=== PATIENT | male | born 1955 | race Caucasian/White ===

== ENCOUNTER → 2019-07-17 11:14 | Outpatient (CLI) | payer OTHER, SELFPAY ==
[2019-07-17 11:45] LABS: Basophils % 0.5 % (0.1-2.0); Eosinophils # 0.2 K/mm3 (0.0-0.4); Eosinophils % 2.6 % (0.1-12.0); Hematocrit 47.8 % (42.0-52.0); Hemoglobin 15.6 g/dL (14.1-18.0); Lymphocytes # 1.9 K/mm3 (0.7-4.5); Lymphocytes % 24.7 % (10-50); Mean Corpuscular HGB Conc 32.6 g/dL (31.8-35.4); Mean Corpuscular Hemoglobin 29.9 pg (27.0-31.2); Mean Corpuscular Volume 91.7 fl (80-94); Mean Platelet Volume 7.1 fl (7.4-10.4); Monocytes # 0.4 K/mm3 (0.1-1.0); Monocytes % 4.5 % (1.7-9.3); Neutrophils # 5.3 K/mm3 (1.8-7.8); Neutrophils % 67.6 % (37.0-80.0); Platelet Count 267 K/mm3 (142-424); Red Blood Count 5.21 M/mm3 (4.60-6.20); Red Cell Distribution Width 13.3 % (11.5-17.5); White Blood Count 7.9 K/mm3 (4.8-10.8)
[2019-07-17 14:18] LABS: Alanine Aminotransferase 25 U/L (12-78); Albumin Level 3.8 gm/dL (3.4-5.0); Albumin/Globulin Ratio 1.2 (1.1-1.8); Alkaline Phosphatase 98 U/L (46-116); Anion Gap 10.3 mEq/L (5-15); Aspartate Amino Transferase 13 U/L (15-37); Bilirubin,Total 0.9 mg/dL (0.2-1.0); Blood Urea Nitrogen 17 mg/dL (7-18); Calcium 8.8 mg/dL (8.5-10.1); Carbon Dioxide 30 mmol/L (21.0-32.0); Chloride 106 mmol/L (98-107); Creatinine,Serum 0.91 mg/dL (0.70-1.30); Estimated Glomerular Filt Rate 85 ml/min (>60); GFR (African American) 102 ML/MIN (>60); Globulin 3.2 gm/dl (1.3-3.2); Glucose 91 mg/dL (74-106); Potassium 4.3 mmoL/L (3.5-5.1); Sodium 142 mmol/L (136-145)
[2019-07-18 12:59] LABS: PSA, Free 17.81 ng/mL; Prostate Specific Ag 119.7 ng/mL (0.0-4.0)
== END ==
PROVIDERS: Visit Provider Internal Medicine Adolescent Medicine
DX: R97.20 Elevated prostate specific antigen [PSA] (principal)
CPT/HCPCS: 36415; 80053; 84153; 84154; 85025

== ENCOUNTER → 2019-08-29 09:06 | Outpatient (CLI) | payer OTHER, SELFPAY ==
--- NOTE | 2019-08-29 09:10 | NM_ITS ---
PROCEDURE: NM BONE SCAN WHOLE BODY CLINICAL INDICATION: ELEVATED PSA,FIRM PROSTATE COMPARISON: No exams were available for comparison TECHNIQUE: Dose: 25.2 mCi technetium MDP FINDINGS: Nonspecific increased periarticular activity noted in the shoulders hips knees and ankles. There is a small focus of increased activity in the left costovertebral region which could be degenerative. Plain films may confirm. There is some bowing of the femurs on both sides which is nonspecific. No other significant anomalies are evident. IMPRESSION: 1. Overall, no convincing evidence of metastatic disease. 2. Small area of increased activity in the left costovertebral region at T10 which could be due to an area bony spurring. Plain film may confirm. Dictated by: Tony Smith MD 08/30/2019 11:05 Electronically signed by Tony Smith MD in [place] 08/30/2019 11:05
== END ==
PROVIDERS: PCP Internal Medicine Adolescent Medicine; Visit Provider Urology
DX: R97.20 Elevated prostate specific antigen [PSA] (principal); R39.89 Other symptoms and signs involving the genitourinary system
CPT/HCPCS: 78306; A9503

== ENCOUNTER → 2019-09-01 09:32 | Outpatient (CLI) | payer OTHER, SELFPAY ==
[2019-09-01 10:03] LABS: Blood Urea Nitrogen 16 mg/dL (7-18); Creatinine,Serum 1.02 mg/dL (0.70-1.30); Estimated Glomerular Filt Rate 74 ml/min (>60); GFR (African American) 90 ML/MIN (>60)
--- NOTE | 2019-09-01 10:11 | CT_ITS ---
PROCEDURE: CT CHEST WO/W CON CLINCAL INDICATION: HARD PROSTATE,ELEVATED PSA Metastatic disease COMPARISON: CT ABDOMEN PELVIS WO/W CON from 09/01/2019 TECHNIQUE: IV Contrast: 75ml Optiray 350 Axial images obtained with sagittal and coronal reformats. All CT scans at the facility use one or more dose reduction, viz: automated exposure control, ma/kV adjustment per patient size (including targeted exams where dose is matched to indication, i.e. head), or iterative reconstruction technique. FINDINGS: Normal heart size. No pericardial effusion. There are some coronary artery calcifications noted. No hilar adenopathy. There is an enlarged lymph node posterior to the mid aspect of the esophagus at the aorta esophageal region. This measures approximately 2.3 x 2 cm. A small lymph node is present in the aortopulmonic region at 12 x 8 mm. There are a few scattered small noncalcified pulmonary nodules including a 3 mm subpleural nodule in the right upper lobe image 41, subpleural nodule right lower lobe laterally image 50 at 3 mm, 3 mm subpleural nodule left lower lobe posteriorly image 63, 3 mm subpleural nodule left lower lobe laterally image 54. These are nonspecific. No effusions or infiltrates. No bony destructive process. No blastic lesions. There is mild gynecomastia. IMPRESSION: 1. There is an enlarged posterior mediastinal lymph node between the esophagus and descending thoracic aorta. 2. There are scattered small subpleural opacities which are nonspecific. 3. Otherwise negative Dictated by: Tony Smith MD 09/01/2019 17:16 Electronically signed by Tony Smith MD in [facility] 09/02/2019 08:46
--- NOTE | 2019-09-01 10:11 | CT_ITS ---
PROCEDURE: CT ABDOMEN PELVIS WO/W CON CLINICAL INDICATION: HARD PROSTATE,ELEVATED PSA Elevated PSA COMPARISON: No exams were available for comparison TECHNIQUE: IV Contrast: 75ML OPTIRAY 350 Oral Contrast none Axial images obtained with sagittal and coronal reformats. All CT scans at the facility use one or more dose reduction, viz: automated exposure control, ma/kV adjustment per patient size (including targeted exams where dose is matched to indication, i.e. head), or iterative reconstruction technique. FINDINGS: Liver, spleen, adrenal glands, pancreas, and kidneys have an unremarkable appearance. No intestinal obstruction or free air. Unremarkable appendix. Enlarged lymph nodes are present in the retroperitoneum in the left para-aortic area just inferior to the left renal artery. This node measures 3.7 by 3.2 cm. There is an additional 2.4 cm node inferior to this larger node. Enlarged nodes are present in the left upper pelvic region in the retroperitoneum in the internal iliac area measuring up to 2.8 x 3.8 cm. And enlarged external iliac node on the left is also present at 2.9 cm. The prostate is enlarged measuring 6.4 cm AP, 4.9 cm transverse the, and 6 cm cephalad caudad. Irregular low-density changes are present in the inferior and posterior aspect of the prostate suspicious for neoplasm. No abnormal fluid collections. No acute bony findings. No obvious blastic or lytic lesions evident. Small umbilical hernia containing fat noted IMPRESSION: 1. Enlarged prostate with irregular low-density changes posteriorly and inferiorly suspicious for neoplasm with multiple enlarged retroperitoneal lymph nodes consistent with metastatic disease. 2. No evidence of hepatic or adrenal metastasis. Dictated by: Tony Smith MD 09/01/2019 17:17 Electronically signed by Tony Smith MD in [place] 09/02/2019 08:35
== END ==
PROVIDERS: Visit Provider Urology
DX: R97.20 Elevated prostate specific antigen [PSA] (principal); R39.89 Other symptoms and signs involving the genitourinary system
CPT/HCPCS: 36415; 71270; 74178; 82565; 84520; Q9967

== ENCOUNTER → 2019-11-23 11:42 | Outpatient (CLI) | payer OTHER, SELFPAY ==
[2019-11-23 11:55] LABS: Basophils % 0.3 % (0.1-2.0); Eosinophils # 0.2 K/mm3 (0.0-0.4); Eosinophils % 2.4 % (0.1-12.0); Hematocrit 45.1 % (42.0-52.0); Hemoglobin 15.1 g/dL (14.1-18.0); Lymphocytes # 1.6 K/mm3 (0.7-4.5); Lymphocytes % 22.5 % (10-50); Mean Corpuscular HGB Conc 33.4 g/dL (31.8-35.4); Mean Corpuscular Hemoglobin 29.7 pg (27.0-31.2); Mean Corpuscular Volume 88.7 fl (80-94); Mean Platelet Volume 7.1 fl (7.4-10.4); Monocytes # 0.4 K/mm3 (0.1-1.0); Monocytes % 5.6 % (1.7-9.3); Neutrophils % 69.2 % (37.0-80.0); Platelet Count 251 K/mm3 (142-424); Red Blood Count 5.08 M/mm3 (4.60-6.20); Red Cell Distribution Width 13.4 % (11.5-17.5); White Blood Count 7.2 K/mm3 (4.8-10.8)
[2019-11-23 13:48] LABS: Alanine Aminotransferase 22 U/L (12-78); Albumin Level 3.9 g/dl (3.5-5.0); Albumin/Globulin Ratio 1.4 (1.1-1.8); Alkaline Phosphatase 77 U/L (38-126); Anion Gap 10.7 mEq/L (5-15); Aspartate Amino Transferase 27 U/L (17-59); Bilirubin,Total 0.3 mg/dl (0.2-1.3); Blood Urea Nitrogen 17 mg/dl (9-20); Calcium 8.8 mg/dl (8.4-10.2); Carbon Dioxide 30 mmol/L (22.0-30.0); Chloride 106 mmol/L (98-107); Estimated Glomerular Filt Rate 76 ml/min (>60); GFR (African American) 92 ML/MIN (>60); Globulin 2.7 g/dL (1.3-3.2); Glucose 87 mg/dl (74-100); Potassium 4.7 mmoL/L (3.5-5.1); Sodium 142 mmol/L (136-145); Total Protein,Serum 6.6 g/dl (6.3-8.2)
[2019-11-23 14:20] LABS: Prostate Specific Ag, Diagnost 41.7 ng/ml (0.0-4.0)
== END ==
PROVIDERS: Visit Provider Internal Medicine Medical Oncology
DX: C61 Malignant neoplasm of prostate (principal)
CPT/HCPCS: 36415; 80053; 84153; 85025

== ENCOUNTER → 2020-01-03 11:19 | Outpatient (CLI) | payer OTHER, SELFPAY ==
[2020-01-03 11:43] LABS: Basophils % 0.4 % (0.1-2.0); Eosinophils # 0.4 K/mm3 (0.0-0.4); Eosinophils % 4.3 % (0.1-12.0); Hematocrit 42.8 % (42.0-52.0); Hemoglobin 14.2 g/dL (14.1-18.0); Lymphocytes # 1.5 K/mm3 (0.7-4.5); Lymphocytes % 14.5 % (10-50); Mean Corpuscular HGB Conc 33.2 g/dL (31.8-35.4); Mean Corpuscular Volume 90.1 fl (80-94); Mean Platelet Volume 6.8 fl (7.4-10.4); Monocytes # 0.5 K/mm3 (0.1-1.0); Neutrophils # 7.6 K/mm3 (1.8-7.8); Neutrophils % 75.7 % (37.0-80.0); Platelet Count 248 K/mm3 (142-424); Red Blood Count 4.74 M/mm3 (4.60-6.20); White Blood Count 10.1 K/mm3 (4.8-10.8)
[2020-01-03 13:28] LABS: Alanine Aminotransferase 34 U/L (12-78); Albumin Level 3.8 g/dl (3.5-5.0); Albumin/Globulin Ratio 1.4 (1.1-1.8); Alkaline Phosphatase 82 U/L (38-126); Anion Gap 10.4 mEq/L (5-15); Aspartate Amino Transferase 28 U/L (17-59); Bilirubin,Total 0.5 mg/dl (0.2-1.3); Blood Urea Nitrogen 21 mg/dl (9-20); Calcium 9.7 mg/dl (8.4-10.2); Carbon Dioxide 32 mmol/L (22.0-30.0); Chloride 101 mmol/L (98-107); Estimated Glomerular Filt Rate 86 ml/min (>60); GFR (African American) 103 ML/MIN (>60); Globulin 2.7 g/dL (1.3-3.2); Glucose 118 mg/dl (74-100); Potassium 4.4 mmoL/L (3.5-5.1); Sodium 139 mmol/L (136-145); Total Protein,Serum 6.5 g/dl (6.3-8.2)
[2020-01-03 13:58] LABS: Prostate Specific Ag Screen 1.4 ng/ml (0.0-4.0)
== END ==
PROVIDERS: Visit Provider Internal Medicine Medical Oncology
DX: C61 Malignant neoplasm of prostate (principal)
CPT/HCPCS: 36415; 80053; 85025; G0103

== ENCOUNTER → 2020-02-05 12:52 | Outpatient (CLI) | payer OTHER, SELFPAY ==
[2020-02-05 14:45] LABS: Chloride 102 mmol/L (98-107); Potassium 4.7 mmoL/L (3.5-5.1); Sodium 137 mmol/L (136-145)
[2020-02-05 14:48] LABS: Anion Gap 8.7 mEq/L (5-15); Blood Urea Nitrogen 24 mg/dl (9-20); Calcium 9.5 mg/dl (8.4-10.2); Carbon Dioxide 31 mmol/L (22.0-30.0); Estimated Glomerular Filt Rate 68 ml/min (>60); GFR (African American) 82 ML/MIN (>60); Glucose 105 mg/dl (74-100)
== END ==
PROVIDERS: Visit Provider Internal Medicine Adolescent Medicine
DX: I10 Essential (primary) hypertension (principal)
CPT/HCPCS: 36415; 80048

== ENCOUNTER → 2020-02-07 11:28 | Outpatient (CLI) | payer OTHER, SELFPAY ==
[2020-02-07 11:49] LABS: Basophils # 0.1 K/mm3 (0-0.2); Basophils % 1.1 % (0.1-2.0); Eosinophils # 0.1 K/mm3 (0.0-0.4); Eosinophils % 1.1 % (0.1-12.0); Hematocrit 44.9 % (42.0-52.0); Hemoglobin 14.5 g/dL (14.1-18.0); Lymphocytes # 3.2 K/mm3 (0.7-4.5); Lymphocytes % 30.9 % (10-50); Mean Corpuscular HGB Conc 32.3 g/dL (31.8-35.4); Mean Corpuscular Hemoglobin 29.9 pg (27.0-31.2); Mean Corpuscular Volume 92.5 fl (80-94); Mean Platelet Volume 6.9 fl (7.4-10.4); Monocytes # 0.3 K/mm3 (0.1-1.0); Monocytes % 3.3 % (1.7-9.3); Neutrophils # 6.6 K/mm3 (1.8-7.8); Neutrophils % 63.5 % (37.0-80.0); Platelet Count 312 K/mm3 (142-424); Red Blood Count 4.86 M/mm3 (4.60-6.20); Red Cell Distribution Width 13.7 % (11.5-17.5); White Blood Count 10.4 K/mm3 (4.8-10.8)
[2020-02-07 13:12] LABS: Alanine Aminotransferase 101 U/L (12-78); Albumin Level 3.9 g/dl (3.5-5.0); Albumin/Globulin Ratio 1.3 (1.1-1.8); Alkaline Phosphatase 82 U/L (38-126); Aspartate Amino Transferase 52 U/L (17-59); Bilirubin,Total 0.7 mg/dl (0.2-1.3); Blood Urea Nitrogen 23 mg/dl (9-20); Calcium 9.8 mg/dl (8.4-10.2); Carbon Dioxide 31 mmol/L (22.0-30.0); Chloride 100 mmol/L (98-107); Estimated Glomerular Filt Rate 76 ml/min (>60); GFR (African American) 92 ML/MIN (>60); Globulin 2.9 g/dL (1.3-3.2); Glucose 143 mg/dl (74-100); Sodium 135 mmol/L (136-145); Total Protein,Serum 6.8 g/dl (6.3-8.2)
[2020-02-07 13:41] LABS: Prostate Specific Ag, Diagnost 0.538 ng/ml (0.0-4.0)
== END ==
PROVIDERS: Visit Provider Internal Medicine Medical Oncology
DX: C61 Malignant neoplasm of prostate (principal)
CPT/HCPCS: 36415; 80053; 84153; 85025

== ENCOUNTER → 2020-02-20 18:06 | Outpatient (CLI) | payer OTHER, SELFPAY ==
[2020-02-20 19:12] LABS: Blood Urea Nitrogen 25 mg/dl (9-20); Estimated Glomerular Filt Rate 68 ml/min (>60); GFR (African American) 82 ML/MIN (>60)
== END ==
PROVIDERS: Visit Provider Internal Medicine Medical Oncology
DX: C61 Malignant neoplasm of prostate (principal)
CPT/HCPCS: 36415; 82565; 84520

== ENCOUNTER → 2020-02-21 09:43 | Outpatient (CLI) | payer OTHER, SELFPAY ==
--- NOTE | 2020-02-21 09:48 | CT_ITS ---
PROCEDURE: CT CHEST W CON CLINCAL INDICATION: PROSTATE CA Follow-up prostate cancer COMPARISON: CT CHEST WO/W CON from 09/01/2019 CT ABDOMEN PELVIS W CON from 02/21/2020 TECHNIQUE: IV Contrast: 75ml Optiray 350 Axial images obtained with sagittal and coronal reformats. All CT scans at the facility use one or more dose reduction, viz: automated exposure control, ma/kV adjustment per patient size (including targeted exams where dose is matched to indication, i.e. head), or iterative reconstruction technique. FINDINGS: HEART AND MEDIASTINAL STRUCTURES: Previously noted enlarged posterior mediastinal lymph node is less prominent measuring 1.4 cm previously at 2.1 cm. No new areas of adenopathy are evident.. No mediastinal or hilar mass evident. LUNGS AND PLEURAL SPACES: Minimal atelectatic or fibrotic change in the right upper lobe medially. No lobar consolidation or collapse. No suspicious nodules BONY STRUCTURES: Degenerative changes thoracic spine UPPER ABDOMEN: Please see abdomen CT report IMPRESSION: Posterior mediastinal lymph node less prominent on today's exam. Otherwise negative Dictated by: Tony Smith MD 02/22/2020 13:01 Electronically signed by Tony Smith MD in [facility] 02/22/2020 13:01
--- NOTE | 2020-02-21 09:48 | CT_ITS ---
PROCEDURE: CT ABDOMEN PELVIS W CON CLINICAL INDICATION: PROSTATE CA Follow-up prostate cancer COMPARISON: CT ABDOMEN PELVIS WO/W CON from 09/01/2019 TECHNIQUE: IV Contrast: 75ML OPTIRAY 350 Oral Contrast 450ml Redicat Axial images obtained with sagittal and coronal reformats. All CT scans at the facility use one or more dose reduction, viz: automated exposure control, ma/kV adjustment per patient size (including targeted exams where dose is matched to indication, i.e. head), or iterative reconstruction technique. FINDINGS: LOWER THORAX: No acute finding. There is some mild coronary artery calcification noted ABDOMEN & PELVIS: The liver, spleen, gallbladder, adrenal glands, pancreas, and kidneys have an unremarkable appearance. No intestinal obstruction or free air. No evidence of appendicitis or diverticulitis. The There is persistent but improved retroperitoneal adenopathy. Left para-aortic lymph node a is noted and measures 16 x 18 mm previously 40 x 37 mm. And enlarged left common iliac lymph node measures 21 x 13 mm previously 37 by 26 mm. Left external iliac lymph node measures 21 x 15 mm previously 32 by 23 mm. There is a right perirectal node which measures 12 mm previously measured 21 mm. No new areas of adenopathy are evident. No bony destructive or lytic or blastic process evident IMPRESSION: 1. Persistent but overall improvement in the retroperitoneal and pelvic adenopathy as detailed above. 2. No evidence of hepatic or adrenal metastasis Dictated by: Tony Smith MD 02/22/2020 12:51 Electronically signed by Tony Smith MD in [place] 02/22/2020 12:51
== END ==
PROVIDERS: PCP Internal Medicine Adolescent Medicine; Visit Provider Internal Medicine Medical Oncology
DX: C61 Malignant neoplasm of prostate (principal)
CPT/HCPCS: 71260; 74177; Q9967

== ENCOUNTER → 2020-05-09 09:06 | Outpatient (CLI) | payer OTHER, SELFPAY ==
[2020-05-09 09:34] LABS: Basophils % 0.3 % (0.1-2.0); Eosinophils # 0.1 K/mm3 (0.0-0.4); Eosinophils % 1.1 % (0.1-12.0); Hematocrit 41.8 % (42.0-52.0); Hemoglobin 14.4 g/dL (14.1-18.0); Lymphocytes # 2.5 K/mm3 (0.7-4.5); Lymphocytes % 30.6 % (10-50); Mean Corpuscular HGB Conc 34.5 g/dL (31.8-35.4); Mean Corpuscular Hemoglobin 32.5 pg (27.0-31.2); Mean Corpuscular Volume 94.1 fl (80-94); Mean Platelet Volume 7.3 fl (7.4-10.4); Monocytes # 0.3 K/mm3 (0.1-1.0); Monocytes % 4.1 % (1.7-9.3); Neutrophils # 5.3 K/mm3 (1.8-7.8); Platelet Count 271 K/mm3 (142-424); Red Blood Count 4.44 M/mm3 (4.60-6.20); Red Cell Distribution Width 13.1 % (11.5-17.5); White Blood Count 8.3 K/mm3 (4.8-10.8)
[2020-05-09 10:39] LABS: Chloride 103 mmol/L (98-107); Potassium 3.6 mmoL/L (3.5-5.1); Sodium 138 mmol/L (136-145)
[2020-05-09 10:41] LABS: Blood Urea Nitrogen 14 mg/dl (9-20); Estimated Glomerular Filt Rate 86 ml/min (>60); GFR (African American) 103 ML/MIN (>60)
[2020-05-09 10:42] LABS: Alanine Aminotransferase 153 U/L (12-78); Albumin Level 3.5 g/dl (3.5-5.0); Albumin/Globulin Ratio 1.3 (1.1-1.8); Alkaline Phosphatase 70 U/L (38-126); Anion Gap 10.6 mEq/L (5-15); Aspartate Amino Transferase 74 U/L (17-59); Bilirubin,Total 0.9 mg/dl (0.2-1.3); Calcium 9.2 mg/dl (8.4-10.2); Carbon Dioxide 28 mmol/L (22.0-30.0); Globulin 2.6 g/dL (1.3-3.2); Glucose 125 mg/dl (74-100); Total Protein,Serum 6.1 g/dl (6.3-8.2)
[2020-05-09 11:44] LABS: Prostate Specific Ag, Diagnost 0.189 ng/ml (0.0-4.0)
== END ==
PROVIDERS: Visit Provider Internal Medicine Medical Oncology
DX: C61 Malignant neoplasm of prostate (principal)
CPT/HCPCS: 36415; 80053; 84153; 85025

== ENCOUNTER → 2020-07-09 17:32 | Outpatient (CLI) | payer OTHER, SELFPAY ==
[2020-07-09 19:30] LABS: Blood Urea Nitrogen 20 mg/dl (9-20); Estimated Glomerular Filt Rate 86 ml/min (>60); GFR (African American) 103 ML/MIN (>60)
== END ==
PROVIDERS: Visit Provider Internal Medicine Medical Oncology
DX: Z01.818 Encounter for other preprocedural examination (principal)
CPT/HCPCS: 36415; 82565; 84520

== ENCOUNTER → 2020-07-10 08:38 | Outpatient (CLI) | payer OTHER, SELFPAY ==
--- NOTE | 2020-07-10 08:56 | CT_ITS ---
PROCEDURE: CT ABDOMEN PELVIS W CON CLINICAL INDICATION: PROSTATE CX Follow-up prostate cancer COMPARISON: CT CT ABDOMEN PELVIS WO/W CON from 09/01/[address] ABDOMEN PELVIS W CON from 02/21/[address] CHEST W CON from 07/10/2020 TECHNIQUE: IV Contrast: 75ML OPTIRAY 350 Oral Contrast None Axial images obtained with sagittal and coronal reformats. All CT scans at the facility use one or more dose reduction, viz: automated exposure control, ma/kV adjustment per patient size (including targeted exams where dose is matched to indication, i.e. head), or iterative reconstruction technique. FINDINGS: There is a subtle 4 mm area of decreased attenuation in the left hepatic lobe inferiorly segment 3 nonspecific and probably unchanged dating back to 09/01/2019. Liver is otherwise unremarkable. The spleen, adrenal glands, pancreas, the and kidneys have an unremarkable appearance. No intestinal obstruction or free air is evident. No evidence of appendicitis. No abdominal or pelvic mass or adenopathy. There is a small umbilical hernia containing fat. A subcutaneous nodule is present in the right lower quadrant of the abdomen anteriorly at the level of the iliac crest nonspecific at 10 mm. The not readily apparent previously. There is a 9 mm subcutaneous nodule in the left lower abdominal wall anterior laterally not significantly changed.. There is a 1.7 by 1.2 cm lymph node medial to the left external iliac artery in the mid pelvic region. This is smaller previously measuring 2 by 1.3 cm. No new areas of adenopathy are evident. There is a 1.5 cm left periaortic lymph node slightly smaller previously 1.9 cm. There is a right perirectal lymph node barely visible also decreased since the previous exam. No abnormal fluid collections. The the no acute bony anomalies. IMPRESSION: Continued improvement in the retroperitoneal and pelvic adenopathy. No new areas of involvement evident. There is a subtle 4 mm area of decreased attenuation in the left hepatic lobe of the liver which is probably unchanged and may be benign. Dictated by: Tony Smith MD 07/11/2020 06:56 Tony Smith MD in [place] 07/11/2020 06:56
--- NOTE | 2020-07-10 08:56 | CT_ITS ---
PROCEDURE: CT CHEST W CON CLINCAL INDICATION: PROSTATE CX Follow-up prostate cancer COMPARISON: CT CT CHEST WO/W CON from 09/01/[address] CHEST W CON from 02/21/2020 TECHNIQUE: IV Contrast: 75ml Optiray 350 Axial images obtained with sagittal and coronal reformats. All CT scans at the facility use one or more dose reduction, viz: automated exposure control, ma/kV adjustment per patient size (including targeted exams where dose is matched to indication, i.e. head), or iterative reconstruction technique. FINDINGS: HEART AND MEDIASTINAL STRUCTURES: Small mediastinal lymph nodes are once again noted. A node posterior to the mid esophagus previously described is approximately 1.2 cm previously measuring 1.4 cm. Small subcarinal lymph nodes are unchanged. No new enlarged lymph nodes are evident. No mediastinal or hilar mass. Incidental note made of mild gynecomastia. There is mild ectasia ascending aorta at 4 cm unchanged. LUNGS AND PLEURAL SPACES: There is some scarring in the right upper lobe medially unchanged. There is a small nodule in the right upper lobe medially at 6 mm adjacent to the right aspect of the aortic root not readily apparent previously nonspecific too small to characterize. There are some scattered small subpleural opacities which are unchanged. BONY STRUCTURES: No acute bony abnormalities apparent. UPPER ABDOMEN: Please see abdomen report ADDITIONAL FINDINGS: No other significant abnormalities. IMPRESSION: There is a new 6 mm nodule in the right upper lobe adjacent to the ascending aorta. This is nonspecific and could be inflammatory or neoplastic. Continued follow-up suggested. Exam is otherwise stable with other stable small subpleural and parenchymal opacities. Posterior mediastinal lymph node stable to slightly smaller.. There is mild ectasia ascending aorta 4 cm unchanged. Dictated by: Tony Smith MD 07/11/2020 06:43 Tony Smith MD in [place] 07/11/2020 06:43
== END ==
PROVIDERS: PCP Internal Medicine Adolescent Medicine; Visit Provider Internal Medicine Medical Oncology
DX: C61 Malignant neoplasm of prostate (principal)
CPT/HCPCS: 71260; 74177; Q9967

== ENCOUNTER → 2020-10-30 15:57 | Outpatient (CLI) | payer OTHER, SELFPAY ==
[2020-10-30 16:53] LABS: Basophils % 0.4 % (0.1-2.0); Eosinophils # 0.2 K/mm3 (0.0-0.4); Eosinophils % 1.5 % (0.1-12.0); Hematocrit 42.9 % (42.0-52.0); Hemoglobin 13.9 g/dL (14.1-18.0); Lymphocytes # 2.8 K/mm3 (0.7-4.5); Lymphocytes % 26.9 % (10-50); Mean Corpuscular HGB Conc 32.5 g/dL (31.8-35.4); Mean Corpuscular Volume 92.4 fl (80-94); Mean Platelet Volume 6.7 fl (7.4-10.4); Monocytes # 0.6 K/mm3 (0.1-1.0); Neutrophils # 6.8 K/mm3 (1.8-7.8); Neutrophils % 65.2 % (37.0-80.0); Platelet Count 264 K/mm3 (142-424); Red Blood Count 4.65 M/mm3 (4.60-6.20); Red Cell Distribution Width 13.2 % (11.5-17.5); White Blood Count 10.4 K/mm3 (4.8-10.8)
[2020-10-30 20:46] LABS: Chloride 98 mmol/L (98-107); Potassium 4.3 mmoL/L (3.5-5.1); Sodium 136 mmol/L (136-145)
[2020-10-30 20:48] LABS: Blood Urea Nitrogen 21 mg/dl (9-20); Estimated Glomerular Filt Rate 85 ml/min (>60); GFR (African American) 103 ML/MIN (>60)
[2020-10-30 20:49] LABS: Alanine Aminotransferase 45 U/L (12-78); Albumin Level 4.1 g/dl (3.5-5.0); Albumin/Globulin Ratio 1.5 (1.1-1.8); Alkaline Phosphatase 80 U/L (38-126); Anion Gap 10.3 mEq/L (5-15); Aspartate Amino Transferase 38 U/L (17-59); Bilirubin,Total 0.6 mg/dl (0.2-1.3); Calcium 9.7 mg/dl (8.4-10.2); Carbon Dioxide 32 mmol/L (22.0-30.0); Globulin 2.8 g/dL (1.3-3.2); Glucose 74 mg/dl (74-100); Total Protein,Serum 6.9 g/dl (6.3-8.2)
[2020-10-30 22:03] LABS: Prostate Specific Ag, Diagnost < 0.064 ng/ml (0.0-4.0)
== END ==
PROVIDERS: Visit Provider Internal Medicine Medical Oncology
DX: C61 Malignant neoplasm of prostate (principal)
CPT/HCPCS: 36415; 80053; 84153; 85025

== ENCOUNTER → 2021-01-21 15:25 | Outpatient (CLI) | payer OTHER, SELFPAY ==
[2021-01-21 16:05] LABS: Basophils % 0.2 % (0.1-2.0); Eosinophils # 0.1 K/mm3 (0.0-0.4); Hematocrit 41.3 % (42.0-52.0); Hemoglobin 13.8 g/dL (14.1-18.0); Lymphocytes # 2.3 K/mm3 (0.7-4.5); Lymphocytes % 20.6 % (10-50); Mean Corpuscular HGB Conc 33.3 g/dL (31.8-35.4); Mean Corpuscular Hemoglobin 29.8 pg (27.0-31.2); Mean Corpuscular Volume 89.4 fl (80-94); Mean Platelet Volume 6.6 fl (7.4-10.4); Monocytes # 0.4 K/mm3 (0.1-1.0); Monocytes % 3.8 % (1.7-9.3); Neutrophils # 8.3 K/mm3 (1.8-7.8); Neutrophils % 74.4 % (37.0-80.0); Platelet Count 281 K/mm3 (142-424); Red Blood Count 4.62 M/mm3 (4.60-6.20); Red Cell Distribution Width 13.1 % (11.5-17.5); White Blood Count 11.2 K/mm3 (4.8-10.8)
[2021-01-21 16:35] LABS: Alanine Aminotransferase 32 U/L (12-78); Albumin Level 3.9 g/dl (3.5-5.0); Albumin/Globulin Ratio 1.6 (1.1-1.8); Alkaline Phosphatase 86 U/L (38-126); Anion Gap 9.8 mEq/L (5-15); Aspartate Amino Transferase 30 U/L (17-59); Bilirubin,Total 0.4 mg/dl (0.2-1.3); Blood Urea Nitrogen 17 mg/dl (9-20); Calcium 9.5 mg/dl (8.4-10.2); Carbon Dioxide 28 mmol/L (22.0-30.0); Chloride 104 mmol/L (98-107); Estimated Glomerular Filt Rate 98 ml/min (>60); GFR (African American) 118 ML/MIN (>60); Globulin 2.5 g/dL (1.3-3.2); Glucose 135 mg/dl (74-100); Potassium 3.8 mmoL/L (3.5-5.1); Sodium 138 mmol/L (136-145); Total Protein,Serum 6.4 g/dl (6.3-8.2)
[2021-01-21 17:09] LABS: Prostate Specific Ag, Diagnost < 0.064 ng/ml (0.0-4.0)
== END ==
PROVIDERS: Visit Provider Internal Medicine Medical Oncology
DX: C61 Malignant neoplasm of prostate (principal)
CPT/HCPCS: 36415; 80053; 84153; 85025

== ENCOUNTER → 2021-01-22 08:49 | Outpatient (CLI) | payer OTHER, SELFPAY ==
--- NOTE | 2021-01-22 | CT_ITS ---
PROCEDURE: CT ABDOMEN PELVIS W CON CLINICAL INDICATION: PROSTATE CANCER Follow-up COMPARISON: CT CT ABDOMEN PELVIS W CON from 07/10/2020 TECHNIQUE: IV Contrast: 75ML Isovue 370 Oral Contrast None Axial images obtained with sagittal and coronal reformats. All CT scans at the facility use one or more dose reduction, viz: automated exposure control, ma/kV adjustment per patient size (including targeted exams where dose is matched to indication, i.e. head), or iterative reconstruction technique. FINDINGS: LOWER THORAX: Please see chest CT report ABDOMEN & PELVIS: Small hypodensity once again noted in segment 3 of the liver unchanged too small to categorize. No new liver lesions evident. The spleen, adrenal glands, pancreas, and kidneys have an unremarkable appearance. No radiopaque gallstones apparent. No intestinal obstruction or free air. No evidence of appendicitis or diverticulitis. There is a small left inguinal hernia containing fat. Urinary bladder wall slightly thickened but may be due to nondistention. A small node in the external iliac region is unchanged at 1.7 cm. A small node medial to the left psoas muscle is 2 x 1 cm unchanged. Small left periaortic lymph node unchanged. No new lymph nodes are identified. No abnormal fluid collection. There is a small umbilical hernia containing fat. No lytic or blastic bony lesions. IMPRESSION: Stable CT appearance of the abdomen and pelvis Dictated by: Tony Smith MD 01/23/2021 09:26 Tony Smith MD in [facility] 01/23/2021 09:26
--- NOTE | 2021-01-22 | CT_ITS ---
PROCEDURE: CT CHEST W CON CLINCAL INDICATION: PROSTATE CANCER Follow up COMPARISON: CT CT CHEST W CON from 07/10/2020 TECHNIQUE: IV Contrast: 75ml Isovue 370 Axial images obtained with sagittal and coronal reformats. All CT scans at the facility use one or more dose reduction, viz: automated exposure control, ma/kV adjustment per patient size (including targeted exams where dose is matched to indication, i.e. head), or iterative reconstruction technique. FINDINGS: HEART AND MEDIASTINAL STRUCTURES: No mediastinal or hilar mass. Small mediastinal lymph nodes as previously described are not significantly changed. Mild prominence of the ascending aorta at 4 cm unchanged. LUNGS AND PLEURAL SPACES: Mild atelectatic changes in the right lower lobe posteriorly. Previously noted small subpleural nodules are unchanged. The previously described 6 mm nodule adjacent to the aortic root in the right upper lobe medially is not identified on today's exam. No new nodules are evident. BONY STRUCTURES: There are mild degenerative changes in the thoracic spine. No blastic lesions identified. UPPER ABDOMEN: See abdomen report ADDITIONAL FINDINGS: No other significant abnormalities. IMPRESSION: Overall stable CT appearance of the chest. No new nodules or new or enlarged lymph nodes. Previously noted right upper lobe nodule no longer apparent. No convincing evidence of metastatic disease. Dictated by: Tony Smith MD 01/23/2021 09:10 Tony Smith MD in [place] 01/23/2021 09:10
== END ==
PROVIDERS: PCP Internal Medicine Adolescent Medicine; Visit Provider Internal Medicine Medical Oncology
DX: C61 Malignant neoplasm of prostate (principal)
CPT/HCPCS: 71260; 74177; Q9967

== ENCOUNTER → 2021-03-10 16:46 | Outpatient (CLI) | payer OTHER, SELFPAY | PROVIDERS: Visit Provider Surgery | DX: Z01.812 Encounter for preprocedural laboratory examination (principal); Z11.52 Encounter for screening for COVID-19; Z12.11 Encounter for screening for malignant neoplasm of colon | CPT/HCPCS: U0003 ==

== ENCOUNTER 2021-03-12 07:08 | Day surgery (SDC) | payer OTHER, SELFPAY ==
[2021-03-06 15:30] VITALS: BMI 30.8
[2021-03-12 07:26] VITALS: BP 149/94; PULSE 66; RESP 18; TEMP 36.3; O2SAT 97
--- NOTE | 2021-03-12 07:59 | P.PN_ITS ---
[facility] Anesthesia Checklist - Patient Identification Patient Identification: Arm Band - Structural Data Admitted From: Home Planned Operative Procedure/s: colonoscopy Consent for Planned Operative Procedure(s) Verified: Yes Verified Documents: Surgical Consent, History and Physical - NPO Status Verified Time NPO: 00:00 - Additional verifications Anesthesia Reactions: No Hx Blood Transfusions: No Blood Transfusion Reaction: Yes - Airway Assessment C-Spine Mobility Assessed: Yes (mp2) TMJ Mobility Assessed: Yes Dentition: Good Dentition - Neurological Assessment Level of Consciousness: Awake, Alert - Anesthesia Plan Anesthesia Risk discussed: Yes Anesthesia Plan: Verified ASA Class: II Anesthesia Type: MAC [facility] History I have reviewed the patient's past medical history: Yes Medical History: Reports:: Cancer, Hypertension, MRSA Denies:: Internal Pacemaker, Seizures *Have you ever received a pneumonia vaccine?: No *Have you received a flu vaccine this season?: No Other Medical History: Reports: Blood Transfusion Reaction Anesthesia experience/problems:: nac Other Surgeries: Yes: Cancer Surgery, Colonoscopy, Other. No: Pacemaker Amputation: No Fractures: No - *Social History Last grade of school completed: High school graduate Smoking Status: Never smoker Alcohol Intake: current Alcohol Intake Frequency:: a few times a month Substance Use Type: denies use *Occupational Status:: employed Housing: house Household Members: spouse *Travel in the last 8 weeks: Inside the [facility] Family Hx:: Hypertension, Stroke
--- NOTE | 2021-03-12 08:30 | HMH.SCOPE ---
- Procedure: Date: 03/12/21 Patient Date of :: 1955 Procedure Performed:: Total colonoscopy with polypectomy and biopsy Indications:: Patient is a 65-year-old male with metastatic prostate cancer to per paraesophageal lymph node. He also has retroperitoneal adenopathy. He is on Eligard and is also on Zytiga and prednisone. When he was seen in oncology he stated that he had some occasional rectal bleeding. This seems to be worse when he is straining for a bowel movement. It is intermittent. He denies pain. He has never had a colonoscopy. Performing Provider:: Pepe Smith MD Referring Provider:: MD Nadine Maldonado MD Sedation:: MAC sedation Procedure:: Patient was taken to endoscopy procedure room. He was positioned in a lateral decubitus position. Adequate intravenous sedation was achieved with anesthesia titration of propofol. Digital examination was performed which revealed uniformly enlarged prostate. Variable stiffness Olympus colonoscope was inserted via the anus. Within the rectum immediately noted was a hemicircumferential fungating slightly hemorrhagic mass consistent with rectal carcinoma. Colonoscope was able to be advanced beyond this to the cecum with some minor difficulty due to floppiness of the sigmoid colon. Colonic preparation was fair with particulate liquid stool throughout the colon. However ileocecal valve and appendiceal orifice were clearly identified. Colonoscope was slowly withdrawn through the colon with careful surveillance with irrigation and suctioning performed. There was a tiny diminutive polyp at the rectosigmoid region at approximately 20 cm. This was removed with cold biopsy forceps. Between approximately 7 and 10 cm from the anus there was a large hemicircumferential firm fungating mass consistent with rectal carcinoma. Multiple biopsies were obtained. This area was firm easily bled. Colonoscope was withdrawn. At the completion of the procedure repeat digital rectal examination was performed more vigorously and the lesion was palpable at the tip of the index finger. Findings:: Rectal carcinoma 7 to 10 cm from anal verge Diminutive rectosigmoid polyp Recommendations:: Will need referral to tertiary facility for management of rectal carcinoma Complications:: None immediately apparent Estimated blood obtained (mL): 5
[2021-03-12 08:32] VITALS: BP 106/53; PULSE 73; RESP 18; TEMP 36.2; O2SAT 95
[2021-03-12 08:42] VITALS: BP 116/79; PULSE 65; RESP 18; O2SAT 95
[2021-03-12 08:52] VITALS: BP 142/83; PULSE 64; RESP 18; O2SAT 95
[2021-03-12 09:05] VITALS: BP 121/76; PULSE 68; RESP 18; O2SAT 96
== END 2021-03-12 09:05 | disposition home or self-care (01) ==
LOC: OUTP 07:09
PROVIDERS: PCP Internal Medicine Adolescent Medicine; Visit Provider Surgery
PROC: 0DJD8ZZ Inspection of Lower Intestinal Tract, Via Natural or Artificial Opening Endoscopic (ICD-10-PCS; CPT 45380; principal; 2021-03-12 08:30)
DX: C78.5 Secondary malignant neoplasm of large intestine and rectum (principal); Z85.46 Personal history of malignant neoplasm of prostate; I10 Essential (primary) hypertension; K63.5 Polyp of colon; Z86.14 Personal history of Methicillin resistant Staphylococcus aureus infection; K62.5 Hemorrhage of anus and rectum; Z82.3 Family history of stroke; Z82.49 Family history of ischemic heart disease and other diseases of the circulatory system; Z79.899 Other long term (current) drug therapy
CPT/HCPCS: 45380

== ENCOUNTER → 2021-04-08 09:32 | Outpatient (CLI) | payer OTHER, SELFPAY ==
[2021-04-08 10:02] LABS: Basophils # 0.1 K/mm3 (0-0.2); Basophils % 0.6 % (0.1-2.0); Eosinophils # 0.2 K/mm3 (0.0-0.4); Eosinophils % 1.7 % (0.1-12.0); Hematocrit 40.7 % (42.0-52.0); Hemoglobin 13.9 g/dL (14.1-18.0); Lymphocytes # 2.5 K/mm3 (0.7-4.5); Lymphocytes % 25.9 % (10-50); Mean Corpuscular HGB Conc 34.1 g/dL (31.8-35.4); Mean Corpuscular Hemoglobin 29.9 pg (27.0-31.2); Mean Corpuscular Volume 87.8 fl (80-94); Mean Platelet Volume 7.4 fl (7.4-10.4); Monocytes # 0.3 K/mm3 (0.1-1.0); Monocytes % 3.5 % (1.7-9.3); Neutrophils # 6.6 K/mm3 (1.8-7.8); Neutrophils % 68.3 % (37.0-80.0); Platelet Count 270 K/mm3 (142-424); Red Blood Count 4.64 M/mm3 (4.60-6.20); Red Cell Distribution Width 13.4 % (11.5-17.5); White Blood Count 9.6 K/mm3 (4.8-10.8)
[2021-04-08 11:06] LABS: Anion Gap 10.8 mEq/L (5-15); Blood Urea Nitrogen 16 mg/dl (9-20); Carbon Dioxide 30 mmol/L (22.0-30.0); Chloride 102 mmol/L (98-107); Estimated Glomerular Filt Rate 98 ml/min (>60); GFR (African American) 118 ML/MIN (>60); Glucose 128 mg/dl (74-100); Potassium 3.8 mmoL/L (3.5-5.1); Sodium 139 mmol/L (136-145)
== END ==
PROVIDERS: Visit Provider Surgery
DX: Z01.812 Encounter for preprocedural laboratory examination (principal); Z11.52 Encounter for screening for COVID-19; C20 Malignant neoplasm of rectum
CPT/HCPCS: 36415; 80048; 85025; U0003

== ENCOUNTER 2021-04-10 09:53 | Day surgery (SDC) | payer OTHER, SELFPAY ==
[2021-04-08 10:09] VITALS: BMI 31.4
[2021-04-10] VITALS (9 sets, daily range): BP systolic 131–156; BP diastolic 50–94; PULSE 70–102; RESP 15–18; TEMP 36.1–36.8; O2SAT 94–99
--- NOTE | 2021-04-10 10:42 | HMH.ANESCL ---
[facility] Anesthesia Checklist - Patient Identification Patient Identification: Arm Band - Structural Data Admitted From: Home Planned Operative Procedure/s: Port-a-cath Placement Consent for Planned Operative Procedure(s) Verified: Yes Verified Documents: Surgical Consent, History and Physical - NPO Status Verified Time NPO: 00:00 - Additional verifications Anesthesia Reactions: No Hx Blood Transfusions: No Blood Transfusion Reaction: Yes - Airway Assessment C-Spine Mobility Assessed: Yes (mp2) TMJ Mobility Assessed: Yes Dentition: Poor Dentition - Neurological Assessment Level of Consciousness: Awake, Alert - Anesthesia Plan Anesthesia Risk discussed: Yes Anesthesia Plan: Verified ASA Class: II Anesthesia Type: General [facility] History I have reviewed the patient's past medical history: Yes Medical History: Reports:: Cancer (prostate,rectal), Hypertension Denies:: Diabetes Mellitus Type 1, Diabetes Mellitus Type 2, Internal Pacemaker, MRSA, Seizures *Have you ever received a pneumonia vaccine?: No *Have you received a flu vaccine this season?: No Other Medical History: Reports: Blood Transfusion Reaction Anesthesia experience/problems:: nac Other Surgeries: Yes: Cancer Surgery, Colonoscopy, Other. No: Pacemaker Amputation: No Fractures: No - *Social History Last grade of school completed: Some college Smoking Status: Never smoker Alcohol Intake: never Alcohol Intake Frequency:: a few times a month Substance Use Type: denies use *Occupational Status:: employed Housing: house Household Members: spouse *Travel in the last 8 weeks: Inside the [place] Family Hx:: No significant family history
--- NOTE | 2021-04-10 12:30 | FL_ITS ---
PROCEDURE: FL GUIDED CENTRAL LINE PLACEMT CLINICAL INDICATION: PORTACATH PLACEMENT COMPARISON: No exams were available for comparison FINDINGS: 2 fluoroscopic images demonstrate left subclavian Port-A-Cath with its tip overlying the SVC is noted. IMPRESSION: Left subclavian Port-A-Cath. Dictated by: Nithya Cotton 04/10/2021 14:08 Nithya Cotton in [place] 04/10/2021 14:08
--- NOTE | 2021-04-10 13:37 | P.PN_ITS ---
[facility] Anesthesia Record Part I Intake, IV Amount: 600 Estimated blood loss (mL): 5 Urine output (mL): 0 Blood Pressure: 136/87 SaO2: 95 Pulse Rate: 102 Respiratory Rate: 16 Temperature: 97.2 F Patient is:: Awake Stable to PACU at:: 13:34
--- NOTE | 2021-04-10 13:44 | XR_ITS ---
PROCEDURE: XR CHEST PORTABLE CLINICAL HISTORY: port-a-cath placement COMPARISON: CT CT CHEST W CON from 01/22/2021 FINDINGS: Left subclavian Port-A-Cath with its tip overlying the SVC is noted. Mild cardiomegaly is noted. Central pulmonary vasculature is within normal limits. Left basal atelectasis is noted. No lobar consolidation. No evidence of pneumothorax within the limitations of portable upright view of the chest. No acute bony abnormalities. IMPRESSION: Left basal atelectasis. No lobar consolidation or pneumothorax. Dictated by: Nithya Cotton 04/10/2021 14:05 Nithya Cotton in [place] 04/10/2021 14:05
--- NOTE | 2021-04-10 13:51 | P.OP_ITS ---
Date of procedure: 04/10/21 Pre-op Diagnosis:: Rectal cancer Post-op Diagnosis:: Same Procedure performed:: Port-A-Cath placement (left subclavian vein access) Surgeon:: Nathaniel Boyce MD SECURITY CONSULTANT:: Alejandro Mckeon Anesthesia: LMA Estimated blood loss (mL): 10 Operative findings:: Tip confirmed fluoroscopically Port flushed easily with heparinized saline (10 mL) Operative note:: After informed consent was obtained the patient was taken to the operating room and placed in the supine position. General anesthesia was induced and his neck/chest was prepped and draped in a sterile fashion. A large bore needle was utilized to access the left subclavian vein. The guidewire was placed in position and confirmed fluoroscopically. Adjustment was necessary secondary to initial injection for that hand. A transverse incision was made at the exit site of the guidewire. The deep subcutaneous tissue was dissected to create a pocket for the port. The dilator and sheath were then placed over the guidewire and confirmed fluoroscopically. The dilator and guidewire were removed. The port catheter was placed in position and confirmed fluoroscopically. The catheter was cut to appropriate length and secured to the port of. The port hub was then secured to the underlying fascia with interrupted Prolene. The deep subcutaneous tissue was reapproximated with interrupted Vicryl. Skin was then closed with 4-0 Monocryl. The port was then flushed with 10 mL of heparinized saline without difficulty. Dressings were applied and the patient was transferred to recovery in stable condition. Chest x-ray pending. Condition: stable Disposition: PACU Specimens:: None Complications:: No immediate. Chest x-ray pending.
--- NOTE | 2021-04-11 15:24 | P.PN_ITS ---
[facility] Anesthesia Record Part II Discharge Time: 14:04 Destination: Surgical Day Care (OP Surgery) PACU nurse assessment reviewed?: Yes Patient Condition:: Good Anesthesia Complications:: None Swallowing reflex intact?: Yes Cyanosis?: No Blood Pressure: 156/94 Pulse Rate: 87 Temperature: 97.5 F Mental Status: Alert & Oriented Pain level:: 0 Nausea and/or vomitting:: None Intake, IV Amount: 0
[2021-04-11 15:25] VITALS: BP 156/94; PULSE 87; TEMP 36.4
== END 2021-04-10 14:33 | disposition home or self-care (01) ==
LOC: OR 09:57
PROVIDERS: PCP Internal Medicine Adolescent Medicine; Visit Provider Surgery
PROC: (CPT 36561; principal; 2021-04-10 11:30)
DX: C20 Malignant neoplasm of rectum (principal); I10 Essential (primary) hypertension; Z79.899 Other long term (current) drug therapy; E10.9 Type 1 diabetes mellitus without complications; E11.9 Type 2 diabetes mellitus without complications; Z86.14 Personal history of Methicillin resistant Staphylococcus aureus infection; Z82.3 Family history of stroke; Z82.49 Family history of ischemic heart disease and other diseases of the circulatory system
CPT/HCPCS: 36561; 71045; 77001; 96374; C1788; J1642

== ENCOUNTER 2021-04-15 08:15 | Outpatient (CLI) | payer OTHER, SELFPAY ==
[2021-04-15] VITALS (23 sets, daily range): BP systolic 136–180; BP diastolic 61–93; PULSE 52–80; RESP 18; TEMP 36.7; O2SAT 98
== END 2021-04-15 15:25 | disposition home or self-care (01) ==
LOC: INF 08:15
PROVIDERS: Visit Provider Internal Medicine Medical Oncology
DX: Z51.11 Encounter for antineoplastic chemotherapy (principal); C20 Malignant neoplasm of rectum
CPT/HCPCS: 96411; 96413; 96415; 96417; J0640; J2469; J7060; J9190; J9263; Q0166

== ENCOUNTER 2021-04-17 12:55 | Outpatient (CLI) | payer OTHER, SELFPAY ==
--- NOTE | 2021-04-17 13:00 | PC.NURSE ---
jasmine lee unhooked pt from home chemo dose; notified md about pt's n/v and weakness, awaiting orders
[2021-04-17 13:20] VITALS: BP 153/79; PULSE 73; RESP 18; O2SAT 93
[2021-04-17 14:28] VITALS: BP 144/71; PULSE 76; RESP 18
--- NOTE | 2021-04-21 11:19 | DIET.NUTRFU ---
Pt contacted for nutrition counseling following first infusion treatment. He states he did get sick/dehydrated after first treatment and came to the hospital for IV zofran and fluids. He states he had not been taking his prescribed nausea medication prior to this but has been since and states this has helped him immensely, reports no N/V/D or nutritional concerns at this time. Diet edu for cancer/chemotherapy provided and pt encouraged to reach out with any nutritional concerns/questions at any time.
== END 2021-04-17 14:28 | disposition home or self-care (01) ==
LOC: INF 13:16
PROVIDERS: Visit Provider Internal Medicine Medical Oncology
DX: Z45.2 Encounter for adjustment and management of vascular access device (principal); C20 Malignant neoplasm of rectum
CPT/HCPCS: 96360; 96375; J1642

== ENCOUNTER 2021-04-24 12:24 | Outpatient (CLI) | payer OTHER, SELFPAY ==
[2021-04-24 12:26] VITALS: BMI 31.4
[2021-04-24 12:42] LABS: Basophils % 0.5 % (0.1-2.0); Eosinophils # 0.2 K/mm3 (0.0-0.4); Eosinophils % 2.9 % (0.1-12.0); Hematocrit 36.1 % (42.0-52.0); Hemoglobin 11.9 g/dL (14.1-18.0); Lymphocytes # 1.7 K/mm3 (0.7-4.5); Mean Corpuscular Hemoglobin 29.3 pg (27.0-31.2); Mean Corpuscular Volume 88.8 fl (80-94); Mean Platelet Volume 7.3 fl (7.4-10.4); Monocytes # 0.3 K/mm3 (0.1-1.0); Monocytes % 5.7 % (1.7-9.3); Neutrophils # 3.7 K/mm3 (1.8-7.8); Neutrophils % 62.9 % (37.0-80.0); Platelet Count 168 K/mm3 (142-424); Red Blood Count 4.06 M/mm3 (4.60-6.20); Red Cell Distribution Width 12.5 % (11.5-17.5); White Blood Count 5.9 K/mm3 (4.8-10.8)
[2021-04-24 12:48] LABS: Chloride 108 mmol/L (98-107); Potassium 3.5 mmoL/L (3.5-5.1); Sodium 141 mmol/L (136-145)
[2021-04-24 12:50] LABS: Blood Urea Nitrogen 13 mg/dl (9-20); Creatinine Clearance Estimated 95 mL/min (50-200); Estimated Glomerular Filt Rate 98 ml/min (>60); GFR (African American) 118 ML/MIN (>60)
[2021-04-24 12:51] LABS: Alanine Aminotransferase 21 U/L (12-78); Albumin Level 3.3 g/dl (3.5-5.0); Albumin/Globulin Ratio 1.3 (1.1-1.8); Alkaline Phosphatase 71 U/L (38-126); Anion Gap 7.5 mEq/L (5-15); Aspartate Amino Transferase 28 U/L (17-59); Bilirubin,Total 0.5 mg/dl (0.2-1.3); Calcium 8.4 mg/dl (8.4-10.2); Carbon Dioxide 29 mmol/L (22.0-30.0); Globulin 2.5 g/dL (1.3-3.2); Glucose 106 mg/dl (74-100); Total Protein,Serum 5.8 g/dl (6.3-8.2)
== END 2021-04-24 12:40 | disposition home or self-care (01) ==
LOC: INF 12:24
PROVIDERS: Visit Provider Internal Medicine Medical Oncology
DX: Z45.2 Encounter for adjustment and management of vascular access device (principal)
CPT/HCPCS: 80053; 85025; J1642

== ENCOUNTER 2021-04-30 08:29 | Outpatient (CLI) | payer OTHER, SELFPAY ==
[2021-04-30] VITALS (9 sets, daily range): BP systolic 130–148; BP diastolic 77–94; PULSE 64–70; RESP 18; TEMP 36.5; O2SAT 96–97
== END 2021-04-30 13:25 | disposition home or self-care (01) ==
LOC: INF 08:29
PROVIDERS: Visit Provider Internal Medicine Medical Oncology
DX: Z51.11 Encounter for antineoplastic chemotherapy (principal); C18.9 Malignant neoplasm of colon, unspecified
CPT/HCPCS: 96411; 96413; 96415; 96417; J0640; J2469; J7060; J9190; J9263; Q0166

== ENCOUNTER 2021-05-02 11:00 | Outpatient (CLI) | payer OTHER, SELFPAY | END 2021-05-02 11:35 | disposition home or self-care (01) | LOC: INF 11:11 | PROVIDERS: Visit Provider Internal Medicine Medical Oncology | DX: C18.9 Malignant neoplasm of colon, unspecified (principal); Z45.2 Encounter for adjustment and management of vascular access device | CPT/HCPCS: 96523; J1642 ==

== ENCOUNTER 2021-05-08 11:25 | Outpatient (CLI) | payer OTHER, SELFPAY ==
[2021-05-08 11:31] VITALS: BMI 71.5
[2021-05-08 11:51] LABS: Basophils % 0.8 % (0.1-2.0); Eosinophils # 0.1 K/mm3 (0.0-0.4); Eosinophils % 2.3 % (0.1-12.0); Hematocrit 36.2 % (42.0-52.0); Hemoglobin 12.1 g/dL (14.1-18.0); Lymphocytes # 2.4 K/mm3 (0.7-4.5); Lymphocytes % 54.7 % (10-50); Mean Corpuscular HGB Conc 33.4 g/dL (31.8-35.4); Mean Corpuscular Hemoglobin 29.7 pg (27.0-31.2); Mean Corpuscular Volume 89.1 fl (80-94); Mean Platelet Volume 7.7 fl (7.4-10.4); Monocytes # 0.3 K/mm3 (0.1-1.0); Monocytes % 6.8 % (1.7-9.3); Neutrophils # 1.5 K/mm3 (1.8-7.8); Neutrophils % 35.4 % (37.0-80.0); Platelet Count 157 K/mm3 (142-424); Red Blood Count 4.06 M/mm3 (4.60-6.20); Red Cell Distribution Width 13.8 % (11.5-17.5); White Blood Count 4.4 K/mm3 (4.8-10.8)
[2021-05-08 11:52] LABS: MANUAL DIFFERENTIAL MANUAL DIFFERENTIAL (MANUAL DIFF)
[2021-05-08 12:18] LABS: Eosinophils % 2 % (0-3); Lymphocytes % 54 % (10-50); Monocytes % 3 % (2-9); Neutrophils % 38 % (42-76); Platelet Estimate Normal; Total Cells Counted 100
[2021-05-08 12:19] LABS: Alanine Aminotransferase 20 U/L (12-78); Albumin Level 3.4 g/dl (3.5-5.0); Albumin/Globulin Ratio 1.4 (1.1-1.8); Alkaline Phosphatase 76 U/L (38-126); Anion Gap 9.4 mEq/L (5-15); Aspartate Amino Transferase 27 U/L (17-59); Bilirubin,Total 0.9 mg/dl (0.2-1.3); Blood Urea Nitrogen 18 mg/dl (9-20); Calcium 8.7 mg/dl (8.4-10.2); Carbon Dioxide 30 mmol/L (22.0-30.0); Chloride 105 mmol/L (98-107); Creatinine Clearance Estimated 68 mL/min (50-200); Estimated Glomerular Filt Rate 85 ml/min (>60); GFR (African American) 103 ML/MIN (>60); Globulin 2.5 g/dL (1.3-3.2); Glucose 122 mg/dl (74-100); Potassium 3.4 mmoL/L (3.5-5.1); Sodium 141 mmol/L (136-145); Total Protein,Serum 5.9 g/dl (6.3-8.2)
== END 2021-05-08 11:45 | disposition home or self-care (01) ==
LOC: INF 11:30
PROVIDERS: Visit Provider Internal Medicine Medical Oncology
DX: C18.9 Malignant neoplasm of colon, unspecified (principal); Z45.2 Encounter for adjustment and management of vascular access device
CPT/HCPCS: 80053; 85007; 85025; J1642

== ENCOUNTER 2021-05-14 08:10 | Outpatient (CLI) | payer OTHER, SELFPAY ==
[2021-05-14] VITALS (9 sets, daily range): BP systolic 135–159; BP diastolic 71–98; PULSE 71–81; RESP 18; TEMP 36.4; O2SAT 97–98
== END 2021-05-14 12:50 | disposition home or self-care (01) ==
PROVIDERS: PCP Internal Medicine Adolescent Medicine; Visit Provider Internal Medicine Medical Oncology
DX: Z51.11 Encounter for antineoplastic chemotherapy (principal); C18.9 Malignant neoplasm of colon, unspecified
CPT/HCPCS: 96411; 96413; 96415; 96417; J0640; J2469; J7060; J9190; J9263; Q0166

== ENCOUNTER → 2021-05-15 15:40 | Outpatient (CLI) | payer OTHER, SELFPAY ==
[2021-05-15 18:12] LABS: Prostate Specific Ag, Diagnost < 0.064 ng/ml (0.0-4.0)
== END ==
PROVIDERS: Visit Provider Urology
DX: C61 Malignant neoplasm of prostate (principal)
CPT/HCPCS: 36415; 84153

== ENCOUNTER 2021-05-16 10:56 | Outpatient (CLI) | payer OTHER, SELFPAY ==
[2021-05-16 11:08] VITALS: BP 147/69; PULSE 82; RESP 20; TEMP 36.2; O2SAT 95
== END 2021-05-16 11:15 | disposition home or self-care (01) ==
LOC: INF 10:58
PROVIDERS: PCP Internal Medicine Adolescent Medicine; Visit Provider Internal Medicine Medical Oncology
DX: Z45.2 Encounter for adjustment and management of vascular access device (principal); C18.9 Malignant neoplasm of colon, unspecified
CPT/HCPCS: 96523; J1642

== ENCOUNTER 2021-05-22 08:12 | Outpatient (CLI) | payer OTHER, SELFPAY ==
[2021-05-22 08:17] VITALS: BMI 33.0
[2021-05-22 08:41] LABS: Basophils % 0.6 % (0.1-2.0); Eosinophils # 0.1 K/mm3 (0.0-0.4); Eosinophils % 1.7 % (0.1-12.0); Hematocrit 37.6 % (42.0-52.0); Hemoglobin 12.8 g/dL (14.1-18.0); Lymphocytes # 2.5 K/mm3 (0.7-4.5); Lymphocytes % 56.8 % (10-50); Mean Corpuscular HGB Conc 34.1 g/dL (31.8-35.4); Mean Corpuscular Volume 91.1 fl (80-94); Monocytes # 0.3 K/mm3 (0.1-1.0); Monocytes % 5.8 % (1.7-9.3); Neutrophils # 1.6 K/mm3 (1.8-7.8); Neutrophils % 35.2 % (37.0-80.0); Platelet Count 165 K/mm3 (142-424); Red Blood Count 4.13 M/mm3 (4.60-6.20); Red Cell Distribution Width 15.6 % (11.5-17.5); White Blood Count 4.5 K/mm3 (4.8-10.8)
[2021-05-22 08:44] LABS: MANUAL DIFFERENTIAL MANUAL DIFFERENTIAL (MANUAL DIFF)
[2021-05-22 08:55] LABS: Chloride 106 mmol/L (98-107); Potassium 3.1 mmoL/L (3.5-5.1); Sodium 140 mmol/L (136-145)
[2021-05-22 08:57] LABS: Blood Urea Nitrogen 19 mg/dl (9-20); Creatinine Clearance Estimated 100 mL/min (50-200); Estimated Glomerular Filt Rate 85 ml/min (>60); GFR (African American) 103 ML/MIN (>60); Lymphocytes % 65 % (10-50); Monocytes % 8 % (2-9); Neutrophils % 27 % (42-76); Platelet Estimate Normal; RBC Morphology Normal; Total Cells Counted 100
[2021-05-22 08:58] LABS: Alanine Aminotransferase 22 U/L (12-78); Albumin Level 3.2 g/dl (3.5-5.0); Albumin/Globulin Ratio 1.3 (1.1-1.8); Alkaline Phosphatase 87 U/L (38-126); Anion Gap 9.1 mEq/L (5-15); Aspartate Amino Transferase 30 U/L (17-59); Bilirubin,Total 0.9 mg/dl (0.2-1.3); Calcium 8.7 mg/dl (8.4-10.2); Carbon Dioxide 28 mmol/L (22.0-30.0); Globulin 2.4 g/dL (1.3-3.2); Glucose 118 mg/dl (74-100); Total Protein,Serum 5.6 g/dl (6.3-8.2)
== END 2021-05-22 08:35 | disposition home or self-care (01) ==
LOC: INF 08:14
PROVIDERS: PCP Internal Medicine Adolescent Medicine; Visit Provider Internal Medicine Medical Oncology
DX: C18.9 Malignant neoplasm of colon, unspecified (principal)
CPT/HCPCS: 80053; 85007; 85025; J1642

== ENCOUNTER 2021-05-28 08:21 | Outpatient (CLI) | payer OTHER, SELFPAY ==
[2021-05-28] VITALS (13 sets, daily range): BP systolic 135–163; BP diastolic 68–99; PULSE 57–77; RESP 17; TEMP 36.3–36.4; O2SAT 96–97
== END 2021-05-28 13:20 | disposition home or self-care (01) ==
LOC: INF 08:22
PROVIDERS: PCP Internal Medicine Adolescent Medicine; Visit Provider Internal Medicine Medical Oncology
DX: Z51.11 Encounter for antineoplastic chemotherapy (principal); C80.1 Malignant (primary) neoplasm, unspecified; C20 Malignant neoplasm of rectum
CPT/HCPCS: 96411; 96413; 96415; 96417; J0640; J2469; J7060; J9190; J9263; Q0166

== ENCOUNTER 2021-05-30 10:51 | Outpatient (CLI) | payer OTHER, SELFPAY ==
[2021-05-30 11:15] VITALS: BP 112/74; PULSE 68; RESP 20; TEMP 36.9; O2SAT 95
== END 2021-05-30 11:25 | disposition home or self-care (01) ==
LOC: INF 10:51
PROVIDERS: PCP Internal Medicine Adolescent Medicine; Visit Provider Internal Medicine Medical Oncology
DX: Z45.2 Encounter for adjustment and management of vascular access device (principal)
CPT/HCPCS: 96523; J1642

== ENCOUNTER 2021-06-05 08:15 | Outpatient (CLI) | payer OTHER, SELFPAY ==
[2021-06-05 08:22] VITALS: BMI 30.8
[2021-06-05 08:47] LABS: Basophils % 0.5 % (0.1-2.0); Eosinophils # 0.1 K/mm3 (0.0-0.4); Eosinophils % 1.7 % (0.1-12.0); Hematocrit 36.6 % (42.0-52.0); Hemoglobin 12.2 g/dL (14.1-18.0); Lymphocytes # 2.3 K/mm3 (0.7-4.5); Lymphocytes % 54.5 % (10-50); Mean Corpuscular HGB Conc 33.4 g/dL (31.8-35.4); Mean Corpuscular Hemoglobin 31.6 pg (27.0-31.2); Mean Corpuscular Volume 94.5 fl (80-94); Mean Platelet Volume 7.3 fl (7.4-10.4); Monocytes # 0.2 K/mm3 (0.1-1.0); Monocytes % 4.3 % (1.7-9.3); Neutrophils # 1.7 K/mm3 (1.8-7.8); Platelet Count 127 K/mm3 (142-424); Red Blood Count 3.87 M/mm3 (4.60-6.20); Red Cell Distribution Width 16.6 % (11.5-17.5); White Blood Count 4.2 K/mm3 (4.8-10.8)
[2021-06-05 08:48] LABS: Chloride 106 mmol/L (98-107)
[2021-06-05 08:49] LABS: Sodium 141 mmol/L (136-145)
[2021-06-05 08:51] LABS: Alanine Aminotransferase 24 U/L (12-78); Alkaline Phosphatase 85 U/L (38-126); Aspartate Amino Transferase 32 U/L (17-59); Bilirubin,Total 0.8 mg/dl (0.2-1.3); Blood Urea Nitrogen 16 mg/dl (9-20); Creatinine Clearance Estimated 93 mL/min (50-200); Estimated Glomerular Filt Rate 98 ml/min (>60); GFR (African American) 118 ML/MIN (>60)
[2021-06-05 08:52] LABS: Albumin Level 3.2 g/dl (3.5-5.0); Albumin/Globulin Ratio 1.3 (1.1-1.8); Anion Gap 9.9 mEq/L (5-15); Calcium 9.1 mg/dl (8.4-10.2); Carbon Dioxide 28 mmol/L (22.0-30.0); Globulin 2.5 g/dL (1.3-3.2); Glucose 135 mg/dl (74-100); Total Protein,Serum 5.7 g/dl (6.3-8.2)
[2021-06-05 08:55] LABS: Potassium 2.9 mmoL/L (3.5-5.1)
[2021-06-05 08:56] LABS: MANUAL DIFFERENTIAL MANUAL DIFFERENTIAL (MANUAL DIFF)
--- NOTE | 2021-06-05 08:58 | PC.NURSE ---
Chantale Leonard called RN at 0854 to report critical potassium level-2.9. RN repeated and verified pt name, , and lab value. Result called to Dr. Ovalle, no new orders noted.
[2021-06-05 09:12] LABS: Anisocytosis 1+; Lymphocytes % 59 % (10-50); Macrocytosis 1+; Monocytes % 8 % (2-9); Neutrophils % 31 % (42-76); Platelet Estimate Normal; Total Cells Counted 100
== END 2021-06-05 08:39 | disposition home or self-care (01) ==
LOC: INF 08:16
PROVIDERS: PCP Internal Medicine Adolescent Medicine; Visit Provider Internal Medicine Medical Oncology
DX: C20 Malignant neoplasm of rectum (principal); Z45.2 Encounter for adjustment and management of vascular access device
CPT/HCPCS: 80053; 85007; 85025; J1642

== ENCOUNTER 2021-06-11 08:29 | Outpatient (CLI) | payer OTHER, SELFPAY ==
[2021-06-11] VITALS (8 sets, daily range): BP systolic 119–155; BP diastolic 84–95; PULSE 62–78; RESP 18; TEMP 36.3; O2SAT 96–97; BMI 30.7
[2021-06-11 08:59] LABS: Alanine Aminotransferase 28 U/L (12-78); Albumin Level 3.2 g/dl (3.5-5.0); Albumin/Globulin Ratio 1.3 (1.1-1.8); Alkaline Phosphatase 75 U/L (38-126); Anion Gap 10.3 mEq/L (5-15); Aspartate Amino Transferase 38 U/L (17-59); Bilirubin,Total 0.7 mg/dl (0.2-1.3); Blood Urea Nitrogen 13 mg/dl (9-20); Calcium 8.8 mg/dl (8.4-10.2); Carbon Dioxide 27 mmol/L (22.0-30.0); Chloride 109 mmol/L (98-107); Creatinine Clearance Estimated 92 mL/min (50-200); Estimated Glomerular Filt Rate 85 ml/min (>60); GFR (African American) 103 ML/MIN (>60); Globulin 2.5 g/dL (1.3-3.2); Glucose 119 mg/dl (74-100); Potassium 3.3 mmoL/L (3.5-5.1); Sodium 143 mmol/L (136-145); Total Protein,Serum 5.7 g/dl (6.3-8.2)
== END 2021-06-11 13:24 | disposition home or self-care (01) ==
LOC: INF 08:29
PROVIDERS: PCP Internal Medicine Adolescent Medicine; Visit Provider Internal Medicine Medical Oncology
DX: Z51.11 Encounter for antineoplastic chemotherapy (principal); C18.9 Malignant neoplasm of colon, unspecified
CPT/HCPCS: 80053; 96411; 96413; 96415; 96417; J0640; J2469; J7060; J9190; J9263; Q0166

== ENCOUNTER 2021-06-13 11:11 | Outpatient (CLI) | payer OTHER, SELFPAY | END 2021-06-13 11:18 | disposition home or self-care (01) | LOC: INF 11:12 | PROVIDERS: PCP Internal Medicine Adolescent Medicine; Visit Provider Internal Medicine Medical Oncology | DX: C18.9 Malignant neoplasm of colon, unspecified (principal); Z45.2 Encounter for adjustment and management of vascular access device | CPT/HCPCS: 96523; J1642 ==

== ENCOUNTER 2021-06-25 08:13 | Outpatient (CLI) | payer OTHER, SELFPAY ==
[2021-06-25] VITALS (26 sets, daily range): BP systolic 121–168; BP diastolic 75–98; PULSE 57–77; RESP 17–18; TEMP 36.7–36.8; O2SAT 98; BMI 29.8
[2021-06-25 08:35] LABS: Basophils % 0.6 % (0.1-2.0); Eosinophils % 0.7 % (0.1-12.0); Hematocrit 36.1 % (42.0-52.0); Hemoglobin 12.1 g/dL (14.1-18.0); Lymphocytes # 2.1 K/mm3 (0.7-4.5); Mean Corpuscular HGB Conc 33.6 g/dL (31.8-35.4); Mean Corpuscular Hemoglobin 32.7 pg (27.0-31.2); Mean Corpuscular Volume 97.5 fl (80-94); Mean Platelet Volume 8.7 fl (7.4-10.4); Monocytes # 0.3 K/mm3 (0.1-1.0); Monocytes % 6.6 % (1.7-9.3); Neutrophils # 1.6 K/mm3 (1.8-7.8); Platelet Count 124 K/mm3 (142-424); Red Cell Distribution Width 19.5 % (11.5-17.5)
[2021-06-25 08:36] LABS: MANUAL DIFFERENTIAL MANUAL DIFFERENTIAL (MANUAL DIFF)
[2021-06-25 08:46] LABS: Chloride 109 mmol/L (98-107); Sodium 142 mmol/L (136-145)
[2021-06-25 08:49] LABS: Alanine Aminotransferase 30 U/L (12-78); Albumin Level 3.1 g/dl (3.5-5.0); Albumin/Globulin Ratio 1.1 (1.1-1.8); Alkaline Phosphatase 94 U/L (38-126); Anion Gap 8.9 mEq/L (5-15); Aspartate Amino Transferase 41 U/L (17-59); Bilirubin,Total 0.9 mg/dl (0.2-1.3); Blood Urea Nitrogen 8 mg/dl (9-20); Calcium 9.4 mg/dl (8.4-10.2); Carbon Dioxide 27 mmol/L (22.0-30.0); Creatinine Clearance Estimated 90 mL/min (50-200); Estimated Glomerular Filt Rate 114 ml/min (>60); GFR (African American) 138 ML/MIN (>60); Globulin 2.7 g/dL (1.3-3.2); Glucose 125 mg/dl (74-100); Total Protein,Serum 5.8 g/dl (6.3-8.2)
[2021-06-25 08:55] LABS: Potassium 2.9 mmoL/L (3.5-5.1)
--- NOTE | 2021-06-25 08:55 | PC.NURSE ---
Elizabeth Martini called RN at 0855 to report potassium of 2.9 at this time. RN repeated and verified pt name, and lab values. result called to at this time. ordered 40meq IV once in addition to the 40meq PO that is on the pts order.
--- NOTE | 2021-06-25 09:30 | PC.NURSE ---
0930- pt placed on playground monitor for potassium infusion at this time.
[2021-06-25 09:33] LABS: Anisocytosis 2+; Eosinophils % 2 % (0-3); Lymphocytes % 45 % (10-50); Macrocytosis 3+; Monocytes % 12 % (2-9); Neutrophils % 38 % (42-76); Platelet Estimate Normal; Total Cells Counted 100
--- NOTE | 2021-06-25 10:27 | PC.NURSE ---
1027- spoke with bio script who stated they received his order for the home 5FU and would have it delivered by 2pm.
== END 2021-06-25 16:23 | disposition home or self-care (01) ==
LOC: INF 08:14
PROVIDERS: PCP Internal Medicine Adolescent Medicine; Visit Provider Internal Medicine Medical Oncology
DX: Z51.11 Encounter for antineoplastic chemotherapy (principal); C18.9 Malignant neoplasm of colon, unspecified
CPT/HCPCS: 80053; 85007; 85025; 96411; 96413; 96415; 96417; J0640; J2469; J7060; J9190; J9263; Q0166

== ENCOUNTER 2021-06-27 15:29 | Outpatient (CLI) | payer OTHER, SELFPAY | END 2021-06-27 15:45 | disposition home or self-care (01) | LOC: INF 15:30 | PROVIDERS: PCP Internal Medicine Adolescent Medicine; Visit Provider Internal Medicine Medical Oncology | DX: C18.9 Malignant neoplasm of colon, unspecified (principal); Z45.2 Encounter for adjustment and management of vascular access device | CPT/HCPCS: 96523; J1642 ==

== ENCOUNTER 2021-07-16 13:52 | Outpatient (CLI) | payer OTHER, SELFPAY ==
[2021-07-16 13:58] VITALS: BMI 29.8
[2021-07-16 14:15] VITALS: BP 136/84; PULSE 76; RESP 18; TEMP 36.4; O2SAT 96
[2021-07-16 15:03] LABS: Hemoglobin A1C 5.6 % (4.0-6.0)
== END 2021-07-16 14:20 | disposition home or self-care (01) ==
LOC: INF 13:53
PROVIDERS: PCP Internal Medicine Adolescent Medicine; Visit Provider Internal Medicine Medical Oncology
DX: C18.9 Malignant neoplasm of colon, unspecified (principal)
CPT/HCPCS: 83036; J2405

== ENCOUNTER 2021-07-21 14:49 | Outpatient (CLI) | payer OTHER, SELFPAY ==
[2021-07-21 15:00] VITALS: BP 122/66; PULSE 95; RESP 20; TEMP 36.6; O2SAT 97
== END 2021-07-21 15:10 | disposition home or self-care (01) ==
LOC: INF 14:49
PROVIDERS: PCP Internal Medicine Adolescent Medicine; Visit Provider Internal Medicine Medical Oncology
DX: C18.9 Malignant neoplasm of colon, unspecified (principal)
CPT/HCPCS: G0463

== ENCOUNTER 2021-07-24 13:35 | Outpatient (CLI) | payer OTHER, SELFPAY ==
[2021-07-24 13:40] VITALS: BMI 30.2
[2021-07-24 13:54] LABS: Basophils % 0.4 % (0.1-2.0); Eosinophils % 0.9 % (0.1-12.0); Hematocrit 36.5 % (42.0-52.0); Hemoglobin 11.8 g/dL (14.1-18.0); Lymphocytes # 1.3 K/mm3 (0.7-4.5); Lymphocytes % 27.4 % (10-50); Mean Corpuscular HGB Conc 32.2 g/dL (31.8-35.4); Mean Corpuscular Hemoglobin 33.7 pg (27.0-31.2); Mean Corpuscular Volume 104.7 fl (80-94); Monocytes # 0.3 K/mm3 (0.1-1.0); Monocytes % 5.5 % (1.7-9.3); Neutrophils % 65.9 % (37.0-80.0); Platelet Count 155 K/mm3 (142-424); Red Blood Count 3.48 M/mm3 (4.60-6.20); Red Cell Distribution Width 17.6 % (11.5-17.5); White Blood Count 4.6 K/mm3 (4.8-10.8)
[2021-07-24 14:06] LABS: Chloride 105 mmol/L (98-107); Potassium 3.4 mmoL/L (3.5-5.1); Sodium 141 mmol/L (136-145)
[2021-07-24 14:09] LABS: Alanine Aminotransferase 22 U/L (12-78); Albumin Level 3.4 g/dl (3.5-5.0); Albumin/Globulin Ratio 1.3 (1.1-1.8); Alkaline Phosphatase 82 U/L (38-126); Anion Gap 9.4 mEq/L (5-15); Aspartate Amino Transferase 39 U/L (17-59); Bilirubin,Total 0.7 mg/dl (0.2-1.3); Blood Urea Nitrogen 9 mg/dl (9-20); Carbon Dioxide 30 mmol/L (22.0-30.0); Creatinine Clearance Estimated 90 mL/min (50-200); Estimated Glomerular Filt Rate 136 ml/min (>60); GFR (African American) 164 ML/MIN (>60); Globulin 2.6 g/dL (1.3-3.2)
[2021-07-24 14:10] LABS: Calcium 8.9 mg/dl (8.4-10.2); Glucose 135 mg/dl (74-100)
== END 2021-07-24 13:51 | disposition home or self-care (01) ==
LOC: INF 13:36
PROVIDERS: PCP Internal Medicine Adolescent Medicine; Visit Provider Internal Medicine Medical Oncology
DX: Z45.2 Encounter for adjustment and management of vascular access device (principal)
CPT/HCPCS: 80053; 85025

== ENCOUNTER 2021-07-28 13:32 | Outpatient (CLI) | payer OTHER, SELFPAY | END 2021-07-28 13:50 | disposition home or self-care (01) | LOC: INF 13:32 | PROVIDERS: PCP Internal Medicine Adolescent Medicine; Visit Provider Internal Medicine Medical Oncology | DX: C18.9 Malignant neoplasm of colon, unspecified (principal); Z45.2 Encounter for adjustment and management of vascular access device | CPT/HCPCS: G0463; J2405 ==

== ENCOUNTER 2021-07-31 13:43 | Outpatient (CLI) | payer OTHER, SELFPAY ==
[2021-07-31 13:46] VITALS: BMI 30.2
[2021-07-31 14:08] LABS: Basophils % 0.6 % (0.1-2.0); Eosinophils # 0.1 K/mm3 (0.0-0.4); Eosinophils % 1.8 % (0.1-12.0); Hematocrit 34.1 % (42.0-52.0); Hemoglobin 11.7 g/dL (14.1-18.0); Lymphocytes # 0.9 K/mm3 (0.7-4.5); Lymphocytes % 22.3 % (10-50); Mean Corpuscular HGB Conc 34.4 g/dL (31.8-35.4); Mean Corpuscular Hemoglobin 35.3 pg (27.0-31.2); Mean Corpuscular Volume 102.7 fl (80-94); Mean Platelet Volume 8.5 fl (7.4-10.4); Monocytes # 0.3 K/mm3 (0.1-1.0); Monocytes % 8.6 % (1.7-9.3); Neutrophils # 2.6 K/mm3 (1.8-7.8); Neutrophils % 66.7 % (37.0-80.0); Platelet Count 187 K/mm3 (142-424); Red Blood Count 3.32 M/mm3 (4.60-6.20); Red Cell Distribution Width 17.1 % (11.5-17.5); White Blood Count 3.8 K/mm3 (4.8-10.8)
[2021-07-31 14:18] LABS: Alanine Aminotransferase 27 U/L (12-78); Albumin Level 3.5 g/dl (3.5-5.0); Albumin/Globulin Ratio 1.3 (1.1-1.8); Alkaline Phosphatase 77 U/L (38-126); Anion Gap 10.4 mEq/L (5-15); Aspartate Amino Transferase 42 U/L (17-59); Bilirubin,Total 0.6 mg/dl (0.2-1.3); Blood Urea Nitrogen 7 mg/dl (9-20); Calcium 9.4 mg/dl (8.4-10.2); Carbon Dioxide 31 mmol/L (22.0-30.0); Chloride 103 mmol/L (98-107); Creatinine Clearance Estimated 90 mL/min (50-200); Estimated Glomerular Filt Rate 167 ml/min (>60); GFR (African American) 203 ML/MIN (>60); Globulin 2.7 g/dL (1.3-3.2); Glucose 112 mg/dl (74-100); Potassium 3.4 mmoL/L (3.5-5.1); Sodium 141 mmol/L (136-145); Total Protein,Serum 6.2 g/dl (6.3-8.2)
== END 2021-07-31 13:50 | disposition home or self-care (01) ==
LOC: INF 13:43
PROVIDERS: PCP Internal Medicine Adolescent Medicine; Visit Provider Internal Medicine Medical Oncology
DX: C18.9 Malignant neoplasm of colon, unspecified (principal); Z45.2 Encounter for adjustment and management of vascular access device
CPT/HCPCS: 80053; 85025

== ENCOUNTER 2021-08-04 12:58 | Outpatient (CLI) | payer OTHER, SELFPAY ==
[2021-08-04 13:04] VITALS: BP 124/72; PULSE 81; RESP 18; TEMP 36.6; O2SAT 97
== END 2021-08-04 13:24 | disposition home or self-care (01) ==
LOC: INF 12:59
PROVIDERS: PCP Internal Medicine Adolescent Medicine; Visit Provider Internal Medicine Medical Oncology
DX: C18.9 Malignant neoplasm of colon, unspecified (principal); Z45.2 Encounter for adjustment and management of vascular access device
CPT/HCPCS: G0463; J1642; J2405

== ENCOUNTER 2021-08-08 11:49 | Outpatient (CLI) | payer OTHER, SELFPAY ==
[2021-08-08 11:55] VITALS: BMI 29.9
[2021-08-08 12:23] LABS: Basophils % 0.5 % (0.1-2.0); Eosinophils # 0.1 K/mm3 (0.0-0.4); Eosinophils % 2.7 % (0.1-12.0); Hematocrit 34.8 % (42.0-52.0); Hemoglobin 11.8 g/dL (14.1-18.0); Lymphocytes # 0.7 K/mm3 (0.7-4.5); Lymphocytes % 14.3 % (10-50); Mean Corpuscular Hemoglobin 35.3 pg (27.0-31.2); Mean Corpuscular Volume 103.9 fl (80-94); Mean Platelet Volume 8.1 fl (7.4-10.4); Monocytes # 0.4 K/mm3 (0.1-1.0); Monocytes % 8.5 % (1.7-9.3); Neutrophils # 3.4 K/mm3 (1.8-7.8); Platelet Count 206 K/mm3 (142-424); Red Blood Count 3.34 M/mm3 (4.60-6.20); Red Cell Distribution Width 16.8 % (11.5-17.5); White Blood Count 4.6 K/mm3 (4.8-10.8)
[2021-08-08 12:32] LABS: Chloride 108 mmol/L (98-107); Potassium 3.3 mmoL/L (3.5-5.1); Sodium 140 mmol/L (136-145)
[2021-08-08 12:35] LABS: Alanine Aminotransferase 25 U/L (12-78); Albumin Level 3.7 g/dl (3.5-5.0); Albumin/Globulin Ratio 1.4 (1.1-1.8); Alkaline Phosphatase 74 U/L (38-126); Anion Gap 7.3 mEq/L (5-15); Aspartate Amino Transferase 39 U/L (17-59); Bilirubin,Total 0.8 mg/dl (0.2-1.3); Blood Urea Nitrogen 8 mg/dl (9-20); Calcium 9.3 mg/dl (8.4-10.2); Carbon Dioxide 28 mmol/L (22.0-30.0); Creatinine Clearance Estimated 89 mL/min (50-200); Estimated Glomerular Filt Rate 136 ml/min (>60); GFR (African American) 164 ML/MIN (>60); Globulin 2.7 g/dL (1.3-3.2); Glucose 110 mg/dl (74-100); Total Protein,Serum 6.4 g/dl (6.3-8.2)
== END 2021-08-08 12:05 | disposition home or self-care (01) ==
LOC: INF 11:50
PROVIDERS: PCP Internal Medicine Adolescent Medicine; Visit Provider Internal Medicine Medical Oncology
DX: C18.9 Malignant neoplasm of colon, unspecified (principal); Z45.2 Encounter for adjustment and management of vascular access device
CPT/HCPCS: 80053; 85025; J1642

== ENCOUNTER 2021-08-11 16:02 | Outpatient (CLI) | payer OTHER, SELFPAY ==
[2021-08-11 16:10] VITALS: BMI 29.5
[2021-08-11 16:43] LABS: Chol/HDL Ratio 5.9 (1-3.5); Cholesterol 176 mg/dl (140-200); HDL Cholesterol 30 mg/dl (40-60); Triglycerides 190 mg/dl (30-150); VLDL Cholesterol 38 mg/dL (0-40)
[2021-08-11 16:53] LABS: Direct LDL Cholesterol 105.35 mg/dL (100-129)
[2021-08-11 17:53] LABS: Glucose,Fasting 113 mg/dl (74-100)
== END 2021-08-11 16:30 | disposition home or self-care (01) ==
LOC: INF 16:03
PROVIDERS: PCP Internal Medicine Adolescent Medicine; Visit Provider Internal Medicine Medical Oncology
DX: Z45.2 Encounter for adjustment and management of vascular access device (principal); C18.9 Malignant neoplasm of colon, unspecified
CPT/HCPCS: 80061; 82947; G0463; J2405

== ENCOUNTER 2021-08-18 14:04 | Outpatient (CLI) | payer OTHER, SELFPAY ==
[2021-08-18 14:10] VITALS: BMI 30.7
[2021-08-18 14:34] LABS: Basophils % 0.6 % (0.1-2.0); Eosinophils # 0.2 K/mm3 (0.0-0.4); Eosinophils % 5.3 % (0.1-12.0); Hematocrit 33.3 % (42.0-52.0); Hemoglobin 11.6 g/dL (14.1-18.0); Lymphocytes # 0.6 K/mm3 (0.7-4.5); Lymphocytes % 13.3 % (10-50); Mean Corpuscular HGB Conc 34.9 g/dL (31.8-35.4); Mean Corpuscular Hemoglobin 35.5 pg (27.0-31.2); Mean Corpuscular Volume 101.6 fl (80-94); Mean Platelet Volume 8.4 fl (7.4-10.4); Monocytes # 0.4 K/mm3 (0.1-1.0); Neutrophils # 3.2 K/mm3 (1.8-7.8); Neutrophils % 72.9 % (37.0-80.0); Platelet Count 194 K/mm3 (142-424); Red Blood Count 3.28 M/mm3 (4.60-6.20); Red Cell Distribution Width 16.2 % (11.5-17.5); White Blood Count 4.4 K/mm3 (4.8-10.8)
[2021-08-18 14:43] LABS: Chloride 106 mmol/L (98-107); Sodium 144 mmol/L (136-145)
[2021-08-18 14:45] LABS: Blood Urea Nitrogen 9 mg/dl (9-20); Creatinine Clearance Estimated 91 mL/min (50-200); Estimated Glomerular Filt Rate 114 ml/min (>60); GFR (African American) 137 ML/MIN (>60)
[2021-08-18 14:46] LABS: Alanine Aminotransferase 23 U/L (12-78); Albumin Level 3.8 g/dl (3.5-5.0); Albumin/Globulin Ratio 1.6 (1.1-1.8); Alkaline Phosphatase 71 U/L (38-126); Aspartate Amino Transferase 40 U/L (17-59); Bilirubin,Total 0.5 mg/dl (0.2-1.3); Calcium 10.1 mg/dl (8.4-10.2); Carbon Dioxide 30 mmol/L (22.0-30.0); Globulin 2.4 g/dL (1.3-3.2); Glucose 127 mg/dl (74-100); Total Protein,Serum 6.2 g/dl (6.3-8.2)
--- NOTE | 2021-08-18 14:52 | PC.NURSE ---
1452-concepcion ocampo called rn at 1452 to report potassium level 3.0. rn repeated and verified pt name, ,and lab value.result called to and new orders for potassium chloride 20 meq po daily.
== END 2021-08-18 14:35 | disposition home or self-care (01) ==
LOC: INF 14:05
PROVIDERS: PCP Internal Medicine Adolescent Medicine; Visit Provider Internal Medicine Medical Oncology
DX: C18.9 Malignant neoplasm of colon, unspecified (principal)
CPT/HCPCS: 80053; 85025; G0463; J2405

== ENCOUNTER → 2021-10-29 10:11 | Outpatient (CLI) | payer OTHER, SELFPAY | PROVIDERS: PCP Internal Medicine Adolescent Medicine; Visit Provider Surgery | DX: Z01.812 Encounter for preprocedural laboratory examination (principal); U07.1 COVID-19; C20 Malignant neoplasm of rectum | CPT/HCPCS: C9803; U0003; U0005 ==

== ENCOUNTER → 2021-11-06 15:24 | Outpatient (CLI) | payer OTHER, SELFPAY ==
[2021-11-06 16:11] LABS: Basophils % 0.5 % (0.1-2.0); Eosinophils # 0.2 K/mm3 (0.0-0.4); Eosinophils % 3.2 % (0.1-12.0); Hematocrit 39.1 % (42.0-52.0); Hemoglobin 12.6 g/dL (14.1-18.0); Lymphocytes # 1.3 K/mm3 (0.7-4.5); Lymphocytes % 23.5 % (10-50); Mean Corpuscular HGB Conc 32.3 g/dL (31.8-35.4); Mean Corpuscular Hemoglobin 30.9 pg (27.0-31.2); Mean Corpuscular Volume 95.6 fl (80-94); Monocytes # 0.3 K/mm3 (0.1-1.0); Monocytes % 4.9 % (1.7-9.3); Neutrophils # 3.7 K/mm3 (1.8-7.8); Platelet Count 241 K/mm3 (142-424); Red Blood Count 4.09 M/mm3 (4.60-6.20); Red Cell Distribution Width 13.1 % (11.5-17.5); White Blood Count 5.5 K/mm3 (4.8-10.8)
[2021-11-06 16:15] LABS: Alanine Aminotransferase 18 U/L (12-78); Albumin Level 3.8 g/dl (3.5-5.0); Albumin/Globulin Ratio 1.6 (1.1-1.8); Alkaline Phosphatase 92 U/L (38-126); Anion Gap 11.7 mEq/L (5-15); Aspartate Amino Transferase 29 U/L (17-59); Bilirubin,Total 0.5 mg/dl (0.2-1.3); Blood Urea Nitrogen 12 mg/dl (9-20); Calcium 8.9 mg/dl (8.4-10.2); Carbon Dioxide 27 mmol/L (22.0-30.0); Chloride 109 mmol/L (98-107); Estimated Glomerular Filt Rate 114 ml/min (>60); GFR (African American) 137 ML/MIN (>60); Globulin 2.4 g/dL (1.3-3.2); Glucose 88 mg/dl (74-100); Magnesium 1.8 mg/dl (1.6-2.3); Potassium 3.7 mmoL/L (3.5-5.1); Sodium 144 mmol/L (136-145); Total Protein,Serum 6.2 g/dl (6.3-8.2)
[2021-11-06 16:48] LABS: Prostate Specific Ag Screen < 0.1 ng/ml (0.0-4.0); Thyroid Stimulating Hormone 1.99 uIU/mL (0.465-4.68)
[2021-11-06 17:22] LABS: Vitamin B12 289 pg/mL (239-931)
[2021-11-06 17:23] LABS: Folate 8.65 ng/mL
[2021-11-08 09:13] LABS: CEA 3.1 ng/mL (0.0-4.7)
== END ==
PROVIDERS: Visit Provider Internal Medicine Medical Oncology
DX: C18.9 Malignant neoplasm of colon, unspecified (principal); Z12.5 Encounter for screening for malignant neoplasm of prostate
CPT/HCPCS: 36415; 80053; 82378; 82607; 82746; 83735; 84443; 85025; G0103

== ENCOUNTER 2021-11-11 09:54 | Outpatient (CLI) | payer OTHER, SELFPAY ==
[2021-11-11 10:01] VITALS: BP 135/83; PULSE 75; RESP 18; TEMP 36.6; O2SAT 98
== END 2021-11-11 10:15 | disposition home or self-care (01) ==
PROVIDERS: PCP Internal Medicine Adolescent Medicine; Visit Provider Internal Medicine Medical Oncology
DX: C18.9 Malignant neoplasm of colon, unspecified (principal)
CPT/HCPCS: 96372

== ENCOUNTER 2021-12-11 13:39 | Outpatient (CLI) | payer SELFPAY ==
[2021-12-11 14:00] VITALS: BP 136/85; PULSE 85; RESP 18
== END 2021-12-11 14:00 | disposition home or self-care (01) ==
LOC: INF 13:45
PROVIDERS: PCP Internal Medicine Adolescent Medicine; Visit Provider Internal Medicine Medical Oncology
DX: C18.9 Malignant neoplasm of colon, unspecified (principal); E53.8 Deficiency of other specified B group vitamins; Z95.2 Presence of prosthetic heart valve
CPT/HCPCS: 96372; 96523; J1642

== ENCOUNTER 2022-01-02 12:53 | Outpatient (CLI) | payer OTHER, SELFPAY ==
[2022-01-02 13:08] VITALS: BMI 29.7
[2022-01-02 13:25] VITALS: BP 127/69; PULSE 84; RESP 18; TEMP 36.2; O2SAT 97
[2022-01-02 13:53] LABS: Chloride 108 mmol/L (98-107); Potassium 3.5 mmoL/L (3.5-5.1); Sodium 138 mmol/L (136-145)
[2022-01-02 13:55] LABS: Alanine Aminotransferase 18 U/L (12-78); Alkaline Phosphatase 98 U/L (38-126); Anion Gap 6.5 mEq/L (5-15); Aspartate Amino Transferase 23 U/L (17-59); Bilirubin,Total 0.6 mg/dl (0.2-1.3); Blood Urea Nitrogen 21 mg/dl (9-20); Carbon Dioxide 27 mmol/L (22.0-30.0); Creatinine Clearance Estimated 88 mL/min (50-200); Estimated Glomerular Filt Rate 85 ml/min (>60); GFR (African American) 103 ML/MIN (>60)
[2022-01-02 13:56] LABS: Albumin Level 3.6 g/dl (3.5-5.0); Albumin/Globulin Ratio 1.3 (1.1-1.8); Calcium 8.6 mg/dl (8.4-10.2); Globulin 2.8 g/dL (1.3-3.2); Glucose 96 mg/dl (74-100); Total Protein,Serum 6.4 g/dl (6.3-8.2)
[2022-01-02 14:02] LABS: Basophils # 0.1 K/mm3 (0-0.2); Basophils % 0.9 % (0.1-2.0); Eosinophils # 0.2 K/mm3 (0.0-0.4); Eosinophils % 4.7 % (0.1-12.0); Hematocrit 39.2 % (42.0-52.0); Hemoglobin 12.7 g/dL (14.1-18.0); Lymphocytes # 1.1 K/mm3 (0.7-4.5); Lymphocytes % 22.3 % (10-50); Mean Corpuscular HGB Conc 32.5 g/dL (31.8-35.4); Mean Corpuscular Volume 95.4 fl (80-94); Mean Platelet Volume 7.4 fl (7.4-10.4); Monocytes # 0.3 K/mm3 (0.1-1.0); Monocytes % 5.7 % (1.7-9.3); Neutrophils # 3.3 K/mm3 (1.8-7.8); Neutrophils % 66.3 % (37.0-80.0); Platelet Count 215 K/mm3 (142-424); Red Blood Count 4.11 M/mm3 (4.60-6.20); Red Cell Distribution Width 14.1 % (11.5-17.5)
[2022-01-02 14:49] LABS: Prostate Specific Ag, Diagnost < 0.064 ng/ml (0.0-4.0)
== END 2022-01-02 13:35 | disposition home or self-care (01) ==
PROVIDERS: PCP Internal Medicine Adolescent Medicine; Visit Provider Internal Medicine Medical Oncology
DX: C18.9 Malignant neoplasm of colon, unspecified (principal); C61 Malignant neoplasm of prostate
CPT/HCPCS: 80053; 82378; 84153; 85025; 96372; J1642

== ENCOUNTER 2022-06-25 13:39 | Outpatient (CLI) | payer MEDICARE, BC, SELFPAY ==
[2022-06-25 13:50] VITALS: BMI 30.9
[2022-06-25 14:25] LABS: Basophils % 0.5 % (0.1-2.0); Eosinophils # 0.2 K/mm3 (0.0-0.4); Eosinophils % 3.4 % (0.1-12.0); Hematocrit 41.1 % (42.0-52.0); Hemoglobin 13.1 g/dL (14.1-18.0); Lymphocytes # 1.9 K/mm3 (0.7-4.5); Mean Corpuscular HGB Conc 31.9 g/dL (31.8-35.4); Mean Corpuscular Hemoglobin 29.8 pg (27.0-31.2); Mean Corpuscular Volume 93.3 fl (80-94); Mean Platelet Volume 7.1 fl (7.4-10.4); Monocytes # 0.4 K/mm3 (0.1-1.0); Monocytes % 6.2 % (1.7-9.3); Neutrophils # 4.2 K/mm3 (1.8-7.8); Neutrophils % 61.9 % (37.0-80.0); Platelet Count 237 K/mm3 (142-424); Red Blood Count 4.41 M/mm3 (4.60-6.20); Red Cell Distribution Width 14.1 % (11.5-17.5); White Blood Count 6.8 K/mm3 (4.8-10.8)
[2022-06-25 14:29] LABS: Chloride 105 mmol/L (98-107); Sodium 141 mmol/L (136-145)
[2022-06-25 14:31] LABS: Blood Urea Nitrogen 22 mg/dl (9-20); Creatinine Clearance Estimated 92 mL/min (50-200); Estimated Glomerular Filt Rate 85 ml/min (>60); GFR (African American) 103 ML/MIN (>60)
[2022-06-25 14:32] LABS: Alanine Aminotransferase 20 U/L (12-78); Albumin Level 4.2 g/dl (3.5-5.0); Albumin/Globulin Ratio 1.6 (1.1-1.8); Alkaline Phosphatase 118 U/L (38-126); Aspartate Amino Transferase 31 U/L (17-59); Bilirubin,Total 0.4 mg/dl (0.2-1.3); Calcium 8.8 mg/dl (8.4-10.2); Carbon Dioxide 29 mmol/L (22.0-30.0); Globulin 2.6 g/dL (1.3-3.2); Glucose 86 mg/dl (74-100); Total Protein,Serum 6.8 g/dl (6.3-8.2)
[2022-06-25 16:08] LABS: Vitamin B12 424 pg/mL (239-931)
[2022-06-27 08:14] LABS: CEA 1.9 ng/mL (0.0-4.7)
== END 2022-06-25 14:10 | disposition home or self-care (01) ==
LOC: INF 13:43
PROVIDERS: Visit Provider Internal Medicine Medical Oncology
DX: C18.9 Malignant neoplasm of colon, unspecified (principal); Z45.2 Encounter for adjustment and management of vascular access device
CPT/HCPCS: 36591; 80053; 82378; 82607; 82746; 85025; 96372; J1642

== ENCOUNTER → 2022-06-29 13:24 | Outpatient (CLI) | payer MEDICARE, BC, SELFPAY ==
[2022-06-29 13:30] VITALS: BP 147/80; PULSE 66; RESP 16; TEMP 36.3; O2SAT 97
[2022-06-29 13:46] VITALS: BP 147/80; PULSE 66; RESP 16; TEMP 36.3; O2SAT 97
== END ==
PROVIDERS: Visit Provider Internal Medicine Medical Oncology
DX: C61 Malignant neoplasm of prostate (principal); C18.9 Malignant neoplasm of colon, unspecified
CPT/HCPCS: 96372; J9217

== ENCOUNTER 2022-12-31 13:45 | Outpatient (CLI) | payer MEDICARE, BC, SELFPAY ==
[2022-12-31 13:56] VITALS: BMI 33.4
[2022-12-31 14:10] VITALS: BP 127/66; PULSE 81; RESP 18; TEMP 36.8; O2SAT 96
[2022-12-31 14:58] LABS: Alanine Aminotransferase 17 U/L (12-78); Albumin Level 3.8 g/dl (3.5-5.0); Albumin/Globulin Ratio 1.5 (1.1-1.8); Alkaline Phosphatase 109 U/L (38-126); Anion Gap 6.5 mEq/L (5-15); Aspartate Amino Transferase 25 U/L (17-59); Bilirubin,Total 0.7 mg/dl (0.2-1.3); Blood Urea Nitrogen 25 mg/dl (9-20); Calcium 8.3 mg/dl (8.4-10.2); Carbon Dioxide 26 mmol/L (22.0-30.0); Chloride 106 mmol/L (98-107); Creatinine Clearance Estimated 82 mL/min (50-200); Estimated Glomerular Filt Rate 61 ml/min (>60); GFR (African American) 74 ML/MIN (>60); Globulin 2.6 g/dL (1.3-3.2); Glucose 121 mg/dl (74-100); Potassium 3.5 mmoL/L (3.5-5.1); Sodium 135 mmol/L (136-145); Total Protein,Serum 6.4 g/dl (6.3-8.2)
[2022-12-31 15:00] LABS: Basophils % 0.5 % (0.1-2.0); Eosinophils # 0.1 K/mm3 (0.0-0.4); Eosinophils % 1.9 % (0.1-12.0); Hematocrit 38.7 % (42.0-52.0); Lymphocytes # 1.1 K/mm3 (0.7-4.5); Lymphocytes % 16.2 % (10-50); Mean Corpuscular HGB Conc 33.5 g/dL (31.8-35.4); Mean Corpuscular Hemoglobin 30.2 pg (27.0-31.2); Mean Corpuscular Volume 90.1 fl (80-94); Mean Platelet Volume 7.9 fl (7.4-10.4); Monocytes # 0.4 K/mm3 (0.1-1.0); Monocytes % 6.2 % (1.7-9.3); Neutrophils % 75.2 % (37.0-80.0); Platelet Count 233 K/mm3 (142-424); Red Cell Distribution Width 13.3 % (11.5-17.5); White Blood Count 6.7 K/mm3 (4.8-10.8)
[2022-12-31 15:32] LABS: Prostate Specific Ag, Diagnost < 0.064 ng/ml (0.0-4.0)
== END 2022-12-31 14:30 | disposition home or self-care (01) ==
LOC: INF 13:48
PROVIDERS: PCP Family Medicine; Visit Provider Internal Medicine Medical Oncology
DX: C61 Malignant neoplasm of prostate (principal); Z45.2 Encounter for adjustment and management of vascular access device
CPT/HCPCS: 36591; 80053; 84153; 85025; 96402; J1642; J9217

== ENCOUNTER → 2023-07-01 11:21 | Outpatient (CLI) | payer MEDICARE, BC, SELFPAY ==
[2023-07-01 11:31] VITALS: BMI 32.5
[2023-07-01 11:45] VITALS: BP 137/83; PULSE 73; RESP 20; TEMP 36.2; O2SAT 96
[2023-07-01 12:24] LABS: Alanine Aminotransferase 35 U/L (12-78); Albumin Level 4.1 g/dl (3.5-5.0); Albumin/Globulin Ratio 1.5 (1.1-1.8); Alkaline Phosphatase 119 U/L (38-126); Anion Gap 10.7 mEq/L (5-15); Aspartate Amino Transferase 37 U/L (17-59); Bilirubin,Total 0.6 mg/dl (0.2-1.3); Blood Urea Nitrogen 19 mg/dl (9-20); Calcium 8.9 mg/dl (8.4-10.2); Carbon Dioxide 30 mmol/L (22.0-30.0); Chloride 101 mmol/L (98-107); Creatinine Clearance Estimated 95 mL/min (50-200); Estimated Glomerular Filt Rate 85 ml/min (>60); GFR (African American) 102 ML/MIN (>60); Globulin 2.8 g/dL (1.3-3.2); Glucose 151 mg/dl (74-100); Potassium 3.7 mmoL/L (3.5-5.1); Sodium 138 mmol/L (136-145); Total Protein,Serum 6.9 g/dl (6.3-8.2)
[2023-07-01 12:58] LABS: Prostate Specific Ag, Diagnost < 0.064 ng/ml (0.0-4.0)
[2023-07-01 13:09] LABS: Basophils % 0.4 % (0.1-2.0); Eosinophils # 0.1 K/mm3 (0.0-0.4); Hemoglobin 13.3 g/dL (14.1-18.0); Lymphocytes # 1.4 K/mm3 (0.7-4.5); Lymphocytes % 21.1 % (10-50); Mean Corpuscular HGB Conc 34.2 g/dL (31.8-35.4); Mean Corpuscular Hemoglobin 31.3 pg (27.0-31.2); Mean Corpuscular Volume 91.5 fl (80-94); Mean Platelet Volume 7.2 fl (7.4-10.4); Monocytes # 0.3 K/mm3 (0.1-1.0); Monocytes % 4.6 % (1.7-9.3); Neutrophils # 4.8 K/mm3 (1.8-7.8); Platelet Count 216 K/mm3 (142-424); Red Blood Count 4.26 M/mm3 (4.60-6.20); Red Cell Distribution Width 13.6 % (11.5-17.5); White Blood Count 6.7 K/mm3 (4.8-10.8)
== END ==
PROVIDERS: PCP Family Medicine; Visit Provider Internal Medicine Medical Oncology
DX: C61 Malignant neoplasm of prostate (principal); Z45.2 Encounter for adjustment and management of vascular access device
CPT/HCPCS: 36591; 80053; 84153; 85025; 96402; J1642; J9217

== ENCOUNTER 2023-12-31 12:00 | Outpatient (CLI) | payer MEDICARE, BC, SELFPAY ==
--- OUTSIDE RECORDS SUMMARY | 2023-12-31 12:02 | XMS_ITS | Continuity of Care Document ---
Author Name Unknown Address [facility] [email or web address] [address] Phone [facility] Address [address] [email or web address] [address] Phone Support Name Relationship Address Phone Rodo Zavala Primary Care Provider Unknown DO [place] [address] Care Teams Patient Care Team Team Status: Active Member Role Status Dates Rodo Zavala Primary Care Provider Active Patient Care Team Team Status: Inactive Member Role Status Dates Rodo Zavala Primary Care Provider Active Start: November 15, 2023 End: November 15, 2023 Melissa Andersen DO Attending Provider Active Start: November 15, 2023 End: November 15, 2023 Chief Complaint and Reason for Visit Chief Complaint Labs Allergies, Adverse Reactions, Alerts No known allergies Social History Smoking Status Status Start Date End Date Date of Observa tion Never smoked tobacco (finding) February 16, 2023 8:32am Additional Data Assigned Sex Male Problems Active Problems Medical Problem Onset Date Status Acute cervical myofascial strain Active Acute thoracic myofascial strain Active Trauma Active Contusion of left chest wall Act andrade Laceration of left ring finger A ctive Head injury Active Acute lumbar myofascial strain A ctive Injury of left shoulder Active Medications Medication Status Dose Units Route Directions Qty Days St art Date End Date Instructions Lisinopril-Hy drochlorothia zide Active 1 TAB PO DAILY March 21, 2023 11:00pm Relevant Diagnostic Tests and/or Laboratory Data Laboratory Results Test Date/Time Result Interpretation Reference Range Result Comment Performing Site White Blood Count November 16, 2023 12:00am 8.67 x10^3/u L 4.23-9.07 [facility] [id number] [address] [place] [address] Red Blood Count November 16, 2023 12:00am 4.46 x10^6/u L 4.63-6.08 [place] [facility] [id number] [address] [place] [address] [place] [address] Hemoglobin November 16, 2023 12:00am 13.2 g/dL 13.1-16.0 [place] [facility] [id number] [address] [place] [address] [place] [address] Hematocrit November 16, 2023 12:00am 41.6 % 39.6-48.7 [place] [facility] [id number] [address] [place] [address] [place] [address] Mean Corpuscular Volume November 16, 2023 12:00am 93.3 fL 79.0-92.2 [place] [facility] [id number] [address] [place] [address] [place] [address] Mean Corpuscular Hemoglobin November 16, 2023 12:00am 29.6 pg 25.7-32.2 [place] [facility] [id number] [address] [place] [address] [place] [address] Mean Corpuscular Hemoglobin Concent November 16, 2023 12:00am 31.7 g/dL 32.3-36.5 [place] [facility] [id number] [address] [place] [address] [place] [address] RDW Standard Deviation November 16, 2023 12:00am 45.6 fL 35.1-43.9 [place] [facility] [id number] [address] [place] [address] [place] [address] RDW Coefficient of Variation November 16, 2023 12:00am 13.3 % 11.6-14.4 [place] [facility] [id number] [address] [place] [address] [place] [address] Platelet Count November 16, 2023 12:00am 233 x10^3/u L 163-337 [place] [facility] [id number] [address] [place] [address] [place] [address] Mean Platelet Volume November 16, 2023 12:00am 9.0 fL 9.4-12.4 [place] [facility] [id number] [address] [place] [address] [place] [address] Neutrophils (%) (Auto) November 16, 2023 12:00am 64.3 % 34.0-67.9 [place] [facility] [id number] [address] [place] [address] [place] [address] Lymphocytes (%) (Auto) November 16, 2023 12:00am 26.6 % 21.8-53.1 [place] [facility] [id number] [place] [address] [place] [address] Monocytes (%) (Auto) November 16, 2023 12:00am 6.2 % 5.3-12.2 [place] [facility] [address] [place] [address] [place] [address] Eosinophils (%) (Auto) November 16, 2023 12:00am 0.0 % 0.8-7.0 [place] [facility] [address] [place] [address] [place] [address] Basophils (%) (Auto) November 16, 2023 12:00am 0.6 % 0.2-1.2 [place] [facility] [address] [place] [address] [place] [address] Nucleated Red Blood Cells % (auto) November 16, 2023 12:00am 0.0 /100 WBC 0-0.2 [place] [facility] [address] [place] [address] [place] [address] Immature/Total Granulocytes (auto) November 16, 2023 12:00am 2.300 % 0-0.429 [place] [facility] [address] [place] [address] [place] [address] Neutrophils # (Auto) November 16, 2023 12:00am 5.57 x10^3/u L 1.78-5.38 [place] [facility] [address] [place] [address] [place] [address] Lymphocytes # (Auto) November 16, 2023 12:00am 2.31 x10^3/u L 1.32-3.57 [place] [facility] [address] [place] [address] [place] [address] Monocytes # (Auto) November 16, 2023 12:00am 0.54 x10^3/u L 0.30-0.82 [place] [facility] [id number] [place] [address] [place] [address] Eosinophils # (Auto) November 16, 2023 12:00am 0.00 x10^3/u L 0.04-0.54 [place] [facility] [address] [place] [address] [place] [address] Basophils # (Auto) November 16, 2023 12:00am 0.05 x10^3/u L 0.01-0.08 [place] [facility] [id number] [place] [address] [place] [address] Nucleated Red Blood Cells # November 16, 2023 12:00am 0.000 x10^3/u L 0-0.012 [place] [facility] [id number] [address] [place] [address] [place] [address] Absolute Immature Granulocyte (auto November 16, 2023 12:00am 0.2000 X10^3/u L 0-0.0310 [place] [facility] [id number] [address] [place] [address] [place] [address] Sodium Level November 16, 2023 3:00am 138 mmol/L 136-145 [place] [facility] [id number] [place] [address] [place] [address] Potassium Level November 16, 2023 3:00am 3.9 mmol/L 3.5-5.1 [place] [facility] [id number] [address] [place] [address] [place] [address] Chloride Level November 16, 2023 3:00am 102 mmol/L 98-107 [place] [facility] [id number] [address] [place] [address] [place] [address] Carbon Dioxide Level November 16, 2023 3:00am 27.0 mmol/L 20.0-31.0 [place] [facility] [id number] [address] [place] [address] [place] [address] Anion Gap November 16, 2023 3:00am 9.3 mmol/L 5.0-15.0 [place] [facility] [id number] [address] [place] [address] [place] [address] Blood Urea Nitrogen November 16, 2023 3:00am 17 mg/dL 9-23 [place] [facility] [id number] [address] [place] [address] [place] [address] Creatinine November 16, 2023 3:00am 0.91 mg/dL 0.73-1.18 [place] [facility] [id number] [address] [place] [address] [place] [address] Estimat Glomerular Filtration Rate November 16, 2023 3:00am > 60.0 eGFR Interpretation: Disease State Ref Ranges (Calculated)Units : ml/min/1.73 m2 Stage eGFR Description I/II >60 Normal/Mildly reduced kidney function III 30-59 Moderately reduced kidney function IV 15-29 Severely reduced kidney function V <15 End-stage kidney failureCalculated using MDRD formula based on gender,race(*GFR AA is for the population),and age. GFR estimates are unreliable in patients with rapidly changing kidney function,recent dialysis,extremes in body size,severe malnutrition or obesity,loss of limbs, abnormal muscle mass,or during . In these patients,alternat andrade determinations of GFR should be obtained. [place] [facility] [id number] [address] [place] [address] [place] [address] Estimated GFR () November 16, 2023 3:00am > 60.0 [place] [facility] [id number] [address] [place] [address] [place] [address] BUN/Creatinine Ratio November 16, 2023 3:00am 18.7 Ratio 6.0-20.0 [place] [facility] [id number] [address] [place] [address] [place] [address] Glucose Level November 16, 2023 3:00am 79 mg/dL 74-106 Falsely depressed or elevated results may occur on samples drawn from patients taking Sulfasalazine and Sulfapyridine, if the blood sample is drawn before clearance of the drug. [place] [facility] [id number] [address] [place] [address] [place] [address] Calcium Level November 16, 2023 3:00am 9.8 mg/dL 8.5-10.1 [place] [facility] [id number] [address] [place] [address] [place] [address] Total Bilirubin November 16, 2023 3:00am 0.40 mg/dL 0.3-1.2 [place] [facility] [id number] [address] [place] [address] [place] [address] Aspartate Amino Transf (AST/SGOT) November 16, 2023 3:00am 25 U/L 13-40 [place] [facility] [id number] [address] [place] [address] [place] [address] Alanine Aminotransferas e November 16, 2023 3:00am 33 U/L 10-49 Falsely depresse d or elevated results may occur on samples drawn from patients taking Sulfasalazine and Sulfapyridine, if the blood sample is drawn before clearance of the drug. [place] [facility] [id number] [address] [place] [address] [place] [address] Total Protein November 16, 2023 3:00am 6.8 g/dL 5.7-8.2 [place] [facility] [id number] [address] [place] [address] [place] [address] Albumin November 16, 2023 3:00am 3.9 g/dL 3.4-5.0 [place] [facility] [id number] [address] [place] [address] [place] [address] Albumin/Globuli n Ratio November 16, 2023 3:00am 1.4 Ratio 1.0-2.0 [place] [facility] [id number] [address] [place] [address] [place] [address] Alkaline Phosphatase November 16, 2023 3:00am 100 U/L 46-116 [place] [facility] [id number] [address] [place] [address] Avel ZACARIAS [address] Vitamin B12 Level November 16, 2023 1:00pm 342 pg/mL 211-911 Falsely depressed or elevated results may occur on samples drawn from patients taking supplements that contain Biotin in excess of the daily recommended allowance, if the blood sample is drawn before clearance of the drug. [facility] [id number] [address] [place] [address] [place] [address] Thyroid Stimulating Hormone (TSH) November 16, 2023 3:00am 2.224 mIU/mL 0.55-4.78 Falsely depressed or elevated results may occur on samples drawn from patients taking supplements that contain Biotin in excess of the daily recommended allowance, if the blood sample is drawn before clearance of the drug. A[place] [facility] [id number] [address] [place] [address] Avel ZACARIAS [address] 25-Hydroxy Vitamin D Total November 16, 2023 1:00pm 19.4 ng/mL 30.0-100.0 Vitamin D deficiency has been defined by the [place] [employer] and an Endocrine Society practice guideline as a level of serum 25-OH vitamin D less than 20 ng/mL.This Total Vitamin D result includes both the D2 and D3 precursors. [facility] [id number] [facility] [place] [address] Insurance Providers Guarantor Ricardo Khan Address [address] [place], [place] [id number] Contact Info. Home Phone: Payer Policy Id Coverage Id Subscriber's Name Subscriber Id Effective Date Expiration Date AN[employer]M MEDICARE HMO [id number] Ricardo Khan [id number] [facility] [id number] Ricardo Khan [id number] COMMERCIAL [employer]URANCE [facility] [id number] Ricardo Khan [id number] MEDICARE A AND B [id number] Ricardo Khan [id number] SELF PAY Encounters Encounter Location(s) Arrival/Admit Date Discharge/Depart Date Provider(s) Departed Clinical [facility] November 15, 2023 12:30am November 15, 2023 12:31am Melissa Andersen DO
[2023-12-31 12:06] VITALS: BMI 34.7
[2023-12-31] MEDS: SODIUM CHLORIDE 0.9% 10ML FLUSH SYRINGE 10 ML IV (12:35)
[2023-12-31 12:39] LABS: Basophils # 0.1 K/mm3 (0-0.2); Basophils % 0.6 % (0.1-2.0); Eosinophils # 0.2 K/mm3 (0.0-0.4); Eosinophils % 2.7 % (0.1-12.0); Hematocrit 40.3 % (42.0-52.0); Hemoglobin 13.3 g/dL (14.1-18.0); Lymphocytes # 1.8 K/mm3 (0.7-4.5); Lymphocytes % 21.8 % (10-50); Mean Corpuscular HGB Conc 32.9 g/dL (31.8-35.4); Mean Corpuscular Hemoglobin 30.9 pg (27.0-31.2); Mean Corpuscular Volume 93.7 fl (80-94); Mean Platelet Volume 7.3 fl (7.4-10.4); Monocytes # 0.5 K/mm3 (0.1-1.0); Monocytes % 5.5 % (1.7-9.3); Neutrophils # 5.7 K/mm3 (1.8-7.8); Neutrophils % 69.4 % (37.0-80.0); Platelet Count 244 K/mm3 (142-424); Red Cell Distribution Width 13.4 % (11.5-17.5); White Blood Count 8.3 K/mm3 (4.8-10.8)
[2023-12-31 12:43] LABS: Chloride 100 mmol/L (98-107)
[2023-12-31 12:44] LABS: Potassium 3.6 mmoL/L (3.5-5.1); Sodium 136 mmol/L (136-145)
[2023-12-31 12:46] LABS: Alanine Aminotransferase 34 U/L (12-78); Aspartate Amino Transferase 34 U/L (17-59); Blood Urea Nitrogen 19 mg/dl (9-20); Creatinine Clearance Estimated 100 mL/min (50-200); Estimated Glomerular Filt Rate 84 ml/min (>60); GFR (African American) 102 ML/MIN (>60)
[2023-12-31 12:47] LABS: Albumin Level 3.9 g/dl (3.5-5.0); Albumin/Globulin Ratio 1.5 (1.1-1.8); Alkaline Phosphatase 102 U/L (38-126); Anion Gap 9.6 mEq/L (5-15); Bilirubin,Total 0.6 mg/dl (0.2-1.3); Calcium 9.2 mg/dl (8.4-10.2); Carbon Dioxide 30 mmol/L (22.0-30.0); Globulin 2.6 g/dL (1.3-3.2); Glucose 92 mg/dl (74-100); Total Protein,Serum 6.5 g/dl (6.3-8.2)
[2023-12-31 13:37] LABS: Prostate Specific Ag, Diagnost < 0.064 ng/ml (0.0-4.0)
[2023-12-31 14:15] VITALS: BP 158/84; PULSE 89; RESP 16; TEMP 36.6; O2SAT 95
[2023-12-31] MEDS: LEUPROLIDE 45 MG SQ (14:15)
== END 2023-12-31 14:25 | disposition home or self-care (01) ==
LOC: INF 12:01
PROVIDERS: Visit Provider Internal Medicine Medical Oncology
DX: C61 Malignant neoplasm of prostate (principal)
CPT/HCPCS: 36591; 80053; 84153; 85025; 96402; J1642; J9217

== ENCOUNTER 2024-01-14 06:52 | Day surgery (SDC) | payer MEDICARE, BC, SELFPAY ==
[2024-01-13 08:51] VITALS: BMI 34.7
[2024-01-14] VITALS (8 sets, daily range): BP systolic 136–172; BP diastolic 75–93; PULSE 74–102; RESP 14–18; TEMP 36.3–36.5; O2SAT 92–96
[2024-01-14] MEDS: LACTATED RINGERS 1000ML 1,000 ML 25 ML IV (07:15)
[2024-01-14] MEDS: CEFAZOLIN SODIUM 2 GM in 0.9 % SODIUM CHLORIDE 100 ML IV (08:00)
[2024-01-14] MEDS: LIDOCAINE 1% 20ML MDV 20 ML (08:11)
--- NOTE | 2024-01-14 08:13 | EXP.ANES.CKL ---
[facility] Disclaimer: The information contained in this section may have been updated after the patient was seen, as this information can be updated by other users. Medical History Port-A-Cath in place Prostate cancer Rectal cancer History of COVID-19 History of gastroesophageal reflux (GERD) History of hypertension Surgical History Hx of esophagogastroduodenoscopy Hx of colonoscopy Family History Father Pneumonia Heart attack Mother Stroke Social History Smoking Status: Never smoker second hand exposure: Yes alcohol intake: never substance use type: denies use current occupational status: retired Travel in the last 8 weeks: None household members: spouse housing: house current occupation: asst reporting manager current occupational exposures/hazards: No caffeine: Yes [facility] Anesthesia Checklist Patient Identification Patient Identification: Verbal (Name & ) Structural Data Admitted From: Home Planned Operative Procedure/s: lola cath removal NPO Status Verified Time NPO: 00:00 Additional verifications Anesthesia Reactions: No Hx Blood Transfusions: No Blood Transfusion Reaction: Yes Airway Assessment Mallampati Score:: Class II C-Spine Mobility Assessed: Yes TMJ Mobility Assessed: Yes Dentition: Good Dentition Neurological Assessment Level of Consciousness: Awake, Alert and Appropriate Anesthesia Plan Anesthesia Risk discussed: Yes Anesthesia Plan: Verified ASA Class: II Anesthesia Type: General
--- NOTE | 2024-01-14 08:21 | P.OP_ITS ---
Date of procedure: 01/14/24 Pre-op Diagnosis:: History of rectal cancer Post-op Diagnosis:: Same Procedure performed:: Removal of Port-A-Cath Surgeon:: Nathaniel Boyce MD [employer] OPERATORS:: Francisco Javier Bergman Anesthesia: LMA Estimated blood loss (mL): 5 Operative findings:: Port removed in toto Operative note:: After informed consent was obtained the patient was taken to the operating room and placed in the supine position. General anesthesia with laryngeal mask airway was achieved. His left upper chest was prepped and draped in a sterile fashion. After infiltration with local anesthetic an incision was made overlying the port. The underlying tissue was dissected with a combination of sharp dissection and electrocautery. The stay sutures were excised and the port was carefully removed without difficulty. Hemostasis was achieved with compression and electrocautery. The wound was irrigated. The deep subcutaneous tissue was reapproximated with interrupted Vicryl. Skin was then closed with 4- 0 Monocryl in a running subcuticular manner. Steri-Strips were applied and the patient was transferred to recovery in stable condition after removal of his laryngeal mask airway. Condition: stable Disposition: PACU Specimens:: Port (not sent for pathologic evaluation) Complications:: No immediate
--- NOTE | 2024-01-14 08:27 | EXP.ANES.I ---
[facility] Anesthesia Record Part I Anesthesia Record I Intake, IV Amount: 800 Hydration: Adequate Estimated blood loss (mL): 0 Urine output (mL): 0 Blood Pressure: 138/75 SaO2: 94 Pulse Rate: 94 Airway Patency: Patent Respiratory Rate: 14 Temperature: 97.3 F Patient is:: Awake and Stable Stable to PACU at:: 08:25
[2024-01-17 09:00] VITALS: BP 172/93; PULSE 91; RESP 16; TEMP 36.3; O2SAT 93
--- NOTE | 2024-01-17 09:00 | P.PNANES_ITS ---
[facility] Anesthesia Record Part II Anesthesia Record Part II Discharge Time: 08:45 Destination: Surgical Day Care (OP Surgery) PACU nurse assessment reviewed?: Yes Patient Condition:: Good Anesthesia Complications:: None Swallowing reflex intact?: Yes Airway Patency: Patent Cyanosis?: No Blood Pressure: 172/93 SaO2: 93 Respiratory Rate: 16 Pulse Rate: 91 Temperature: 97.3 F Mental Status: Alert & Oriented Pain level:: 0 Nausea and/or vomitting:: None Intake, IV Amount: 0 Hydration: Adequate
== END 2024-01-14 09:16 | disposition home or self-care (01) ==
PROVIDERS: Visit Provider Surgery
PROC: (CPT 36590; principal; 2024-01-14 08:30)
DX: Z45.2 Encounter for adjustment and management of vascular access device (principal); Z85.048 Personal history of other malignant neoplasm of rectum, rectosigmoid junction, and anus
CPT/HCPCS: 36590; J0690

== ENCOUNTER 2024-07-12 08:52 | Outpatient (CLI) | payer MEDICARE, BC, SELFPAY ==
[2024-07-12 09:06] VITALS: BMI 34.0
[2024-07-12 09:10] VITALS: BP 149/81; PULSE 71; RESP 18; TEMP 36.6; O2SAT 97
[2024-07-12] MEDS: LEUPROLIDE 45 MG SUBCUT (09:13)
--- NOTE | 2024-07-12 09:13 | PC.NURSE ---
venipuncture stick with 23g butterfly needle to LAC. labs drawn and sent to lab. pt tolerated well. 2x2s and coban applied. bleeding controlled.
[2024-07-12 09:20] VITALS: BP 146/80; PULSE 70; RESP 18; TEMP 36.6; O2SAT 98
[2024-07-12 09:23] LABS: Basophils % 0.7 % (0.1-2.0); Eosinophils # 0.2 K/mm3 (0.0-0.4); Eosinophils % 3.1 % (0.1-12.0); Hematocrit 37.3 % (42.0-52.0); Hemoglobin 13.4 g/dL (14.1-18.0); Lymphocytes # 1.2 K/mm3 (0.7-4.5); Lymphocytes % 19.6 % (10-50); Mean Corpuscular HGB Conc 35.9 g/dL (31.8-35.4); Mean Corpuscular Hemoglobin 32.1 pg (27.0-31.2); Mean Corpuscular Volume 89.3 fl (80-94); Mean Platelet Volume 7.1 fl (7.4-10.4); Monocytes # 0.3 K/mm3 (0.1-1.0); Monocytes % 4.8 % (1.7-9.3); Neutrophils # 4.3 K/mm3 (1.8-7.8); Neutrophils % 71.9 % (37.0-80.0); Platelet Count 211 K/mm3 (142-424); Red Blood Count 4.18 M/mm3 (4.60-6.20); Red Cell Distribution Width 13.5 % (11.5-17.5)
[2024-07-12 09:36] LABS: Albumin Level 4.1 g/dl (3.5-5.0); Chloride 101 mmol/L (98-107); Potassium 3.9 mmoL/L (3.5-5.1); Sodium 138 mmol/L (136-145)
[2024-07-12 09:38] LABS: Blood Urea Nitrogen 15 mg/dl (9-20); Creatinine Clearance Estimated 98 mL/min (50-200); Estimated Glomerular Filt Rate 75 ml/min (>60); GFR (African American) 90 ML/MIN (>60)
[2024-07-12 09:39] LABS: Alanine Aminotransferase 38 U/L (12-78); Albumin/Globulin Ratio 1.5 (1.1-1.8); Alkaline Phosphatase 87 U/L (38-126); Anion Gap 10.9 mEq/L (5-15); Aspartate Amino Transferase 30 U/L (17-59); Bilirubin,Total 0.7 mg/dl (0.2-1.3); Calcium 9.5 mg/dl (8.4-10.2); Carbon Dioxide 30 mmol/L (22.0-30.0); Globulin 2.7 g/dL (1.3-3.2); Glucose 132 mg/dl (74-100); Total Protein,Serum 6.8 g/dl (6.3-8.2)
[2024-07-12 11:35] LABS: Prostate Specific Ag, Diagnost < 0.064 ng/ml (0.0-4.0)
== END 2024-07-12 09:22 | disposition home or self-care (01) ==
LOC: INF 08:59
PROVIDERS: Visit Provider Internal Medicine Medical Oncology
DX: C61 Malignant neoplasm of prostate (principal)
CPT/HCPCS: 36415; 80053; 84153; 85025; 96402; J9217

== ENCOUNTER 2025-01-10 09:52 | Outpatient (CLI) | payer MEDICARE, BC, SELFPAY ==
--- OUTSIDE RECORDS SUMMARY | 2025-01-10 09:55 | XMS_ITS | Continuity of Care Document ---
Author Organization [facility]. Address [address] [place] [address] Phone Support Name Relationship Address Phone Sally Rodo Personal Relationship Unknown Melissa Musa DO [place] [address] Lizy Mack APRN Personal Relationship [address] [place] [address] Tanika Andersen [place] [address] Care Teams Patient Care Team Team Status: Active Member Role Status Dates Tanika Andersen APRN Primary Care Provider Active Visit Care Team Team Status: Inactive Member Role Status Dates Rodo Zavala Primary Care Provider Active Start: November 10, 2024 End: November 10, 2024 Melissa Andersen DO Attending Provider Active Start: November 10, 2024 End: November 10, 2024 Patient Care Team Team Status: Inactive Member Role Status Dates Lizy Mack APRN Attending Provider Active S tart: January 03, 2025 End: January 03, 2025 Tanika Andersen APRN Primary Care Provider Active Start: January 03, 2025 End: January 03, 2025 Chief Complaint and Reason for Visit Chief Complaint Admit Date Labs November 10, 2024 1:58pm Occasional Dyspnea / Melinda Hans December 192024 12:36pm Allergies, Adverse Reactions, Alerts Allergen Type Severity Reaction Last Updated Verified Status No Known Drug Allergies Allergy Unknown A pril 2024 1:28pm Yes Active Social History Smoking Status Status Start Date End Date Date of Observa tion Never smoked tobacco (finding) February 16, 2023 8:32am Observation Status Observation Response Date of Response Sex Assigned At Male July 191956 Problems Active Problems Medical Problem Onset Date Status Acute cervical myofascial strain Unknown Active Acute thoracic myofascial strain Unknown Active Trauma Unknown Active Contusion of left chest wall Unknown Act andrade Laceration of left ring finger Unknown A ctive Head injury Unknown Active Acute lumbar myofascial strain Unknown A ctive Injury of left shoulder Unknown Active Medications Medication Status Dose Units Route Directions Qty Days St art Date Stop Date End Date Instructions Adherence Lisinopril- Hydrochloro thiazide 20-25 mg tablet Discont inued 1 TAB PO DAILY March 22, 2023 12:00a m Omeprazole 20 mg capsule,del ayed release(DR/ EC) Discont inued 20 MG PO DAILY January 03, 2025 12:00a m Leuprolide Acetate (6 Month) (Eligard (6 Month)) 45 mg syringe Discont inued 45 MG SUBCUT EVERY 6 MONTHS January 03, 2025 12:00a m Relevant Diagnostic Tests and/or Laboratory Data Laboratory Results Test Collection Date/Time Result Date/Time Result Interpretation Reference Range Result Comment Performing Site White Blood Count November 10, 2024 12:51pm November 10, 2024 4:35pm 7.41 x10^3/u L 3.90-8.80 [place] [facility] [id number] [address] [place] [address] [place] [address] Red Blood Count November 10, 2024 12:51pm November 10, 2024 4:35pm 4.54 x10^6/u L 4.50-5.90 [place] [facility] [id number] [address] [place] [address] [place] [address] Hemoglobi n November 10, 2024 12:51pm November 10, 2024 4:35pm 13.6 g/dL 13.7-17.5 [place] [facility] [id number] [address] [place] [address] [place] [address] Hematocri t November 10, 2024 12:51pm November 10, 2024 4:35pm 41.1 % 41.0-53.0 [place] [facility] [id number] [address] [place] [address] [place] [address] Mean Corpuscul ar Volume November 10, 2024 12:51pm November 10, 2024 4:35pm 90.5 fL 80.0-100.0 [place] [facility] [id number] [address] [place] [address] [place] [address] Mean Corpuscul ar Hemoglobi n November 10, 2024 12:51pm November 10, 2024 4:35pm 30.0 pg 26.0-34.0 [place] [facility] [id number] [address] [place] [address] [place] [address] Mean Corpuscul ar Hemoglobi n Concent November 10, 2024 12:51pm November 10, 2024 4:35pm 33.1 g/dL 31.0-37.0 [place] [facility] [id number] [address] [place] [address] [place] [address] RDW Standard Deviation November 10, 2024 12:51pm November 10, 2024 4:35pm 42.5 fL 37.8-46.1 [place] [facility] [id number] [address] [place] [address] [place] [address] RDW Coefficie nt of Variation November 10, 2024 12:51pm November 10, 2024 4:35pm 12.9 % 12.3-14.3 [place] [facility] [id number] [address] [place] [address] [place] [address] Platelet Count November 10, 2024 12:51pm November 10, 2024 4:35pm 236 x10^3/u L 163-337 [place] [facility] [id number] [address] [place] [address] [place] [address] Mean Platelet Volume November 10, 2024 12:51pm November 10, 2024 4:35pm 9.2 fL 9.4-12.4 [place] [facility] [id number] [address] [place] [address] [place] [address] Neutrophi ls (%) (Auto) November 10, 2024 12:51pm November 10, 2024 4:35pm 71.9 % 34.0-67.9 [place] [facility] [id number] [address] [place] [address] [place] [address] Lymphocyt es (%) (Auto) November 10, 2024 12:51pm November 10, 2024 4:35pm 19.6 % 21.8-53.1 [place] [facility] [id number] [address] [place] [address] [place] [address] Monocytes (%) (Auto) November 10, 2024 12:51pm November 10, 2024 4:35pm 6.2 % 5.3-12.2 [place] [facility] [id number] [address] [place] [address] [place] [address] Eosinophi ls (%) (Auto) November 10, 2024 12:51pm November 10, 2024 4:35pm 0.0 % 0.8-7.0 [place] [facility] [id number] [address] [place] [address] Basophils (%) (Auto) November 10, 2024 12:51pm November 10, 2024 4:35pm 0.4 % 0.2-1.2 [place] [facility] [id number] [address] [place] [address] [place] [address] Nucleated Red Blood Cells % (auto) November 10, 2024 12:51pm November 10, 2024 4:35pm 0.0 /100 WBC 0-0.2 [place] [facility] [id number] [address] [place] [address] [place] [address] Immature/ Total Granulocy rosalba (auto) November 10, 2024 12:51pm November 10, 2024 4:35pm 1.900 % 0-0.429 [place] [facility] [id number] [address] [place] [address] [place] [address] Neutrophi ls # (Auto) November 10, 2024 12:51pm November 10, 2024 4:35pm 5.33 x10^3/u L 1.78-5.38 [place] [facility] [id number] [address] [place] [address] [place] [address] Lymphocyt es # (Auto) November 10, 2024 12:51pm November 10, 2024 4:35pm 1.45 x10^3/u L 1.32-3.57 [place] [facility] [id number] [address] [place] [address] [place] [address] Monocytes # (Auto) November 10, 2024 12:51pm November 10, 2024 4:35pm 0.46 x10^3/u L 0.30-0.82 [place] [facility] [id number] [address] [place] [address] [place] [address] Eosinophi ls # (Auto) November 10, 2024 12:51pm November 10, 2024 4:35pm 0.00 x10^3/u L 0.04-0.54 [place] [facility] [id number] [address] [place] [address] [place] [address] Basophils # (Auto) November 10, 2024 12:51pm November 10, 2024 4:35pm 0.03 x10^3/u L 0.01-0.08 [place] [facility] [id number] [address] [place] [address] [place] [address] Nucleated Red Blood Cells # November 10, 2024 12:51pm November 10, 2024 4:35pm 0.000 x10^3/u L 0-0.012 [place] [facility] [id number] [address] [place] [address] Absolute Immature Granulocy te (auto November 10, 2024 12:51pm November 10, 2024 4:35pm 0.1400 X10^3/u L 0-0.0310 [place] [facility] [id number] [address] [place] [address] [place] [address] Urine Creatinin e November 10, 2024 12:51pm November 10, 2024 5:10pm 190.80 mg/dL No known normal values established [place] [facility] [id number] [address] [place] [address] [place] [address] Urine Microalbu min November 10, 2024 12:51pm November 10, 2024 5:10pm 7.0 mg/L 1.3-20.0 [place] [facility] [id number] [address] [place] [address] [place] [address] Urine Microalbu min/Creat inine Ratio November 10, 2024 12:51pm November 10, 2024 5:10pm 3.7 mg/g 0-30 [place] [facility] [id number] [address] [place] [address] [place] [address] Sodium Level November 10, 2024 12:51pm November 10, 2024 4:55pm 141 mmol/L 136-145 [place] [facility] [id number] [address] [place] [address] [place] [address] Potassium Level November 10, 2024 12:51pm November 10, 2024 4:55pm 4.0 mmol/L 3.5-5.1 [place] [facility] [id number] [address] [place] [address] [place] [address] Chloride Level November 10, 2024 12:51pm November 10, 2024 4:55pm 101 mmol/L 98-107 [place] [facility] [id number] [address] [place] [address] [place] [address] Carbon Dioxide Level November 10, 2024 12:51pm November 10, 2024 4:55pm 30.0 mmol/L 20.0-31.0 [place] [facility] [id number] [address] [place] [address] [place] [address] Anion Gap November 10, 2024 12:51pm November 10, 2024 4:55pm 9.8 mmol/L 5.0-15.0 [place] [facility] [id number] [address] [place] [address] [place] [address] Blood Urea Nitrogen November 10, 2024 12:51pm November 10, 2024 4:55pm 20 mg/dL 9-23 [place] [facility] [id number] [address] [place] [address] [place] [address] Creatinin e November 10, 2024 12:51pm November 10, 2024 4:57pm 0.89 mg/dL 0.73-1.18 [facility] [id number] [address] [place] [address] [place] [address] Estimat Glomerula r Filtratio n Rate November 10, 2024 12:51pm November 10, 2024 4:57pm > 90.0 eGFR Interpretati on: Disease State Ref Ranges (Calculated) Units: ml/min/1.73 m2 Stage eGFR Description I/II >60 Normal/Mildl y reduced kidney function III 30-59 Moderately reduced kidney function IV 15-29 Severely reduced kidney function V <15 End-stage kidney failureCalcu lated using MDRD formula based on gender,race( *GFR AA is for the population), and age. GFR estimates are unreliable in patients with rapidly changing kidney function,rec ent dialysis,ext remes in body size,severe malnutrition or obesity,loss of limbs, abnormal muscle mass,or during . In these patients,alt ernative determinatio ns of GFR should be obtained. [facility] [id number] [address] [place] [address] [place] [address] BUN/Creat inine Ratio November 10, 2024 12:51pm November 10, 2024 4:57pm 22.5 Ratio 6.0-20.0 [facility] [id number] [address] [place] [address] [place] [address] Glucose Level November 10, 2024 12:51pm November 10, 2024 4:55pm 99 mg/dL 74-106 Falsely depressed or elevated results may occur on samples drawn from patients taking Sulfasalazin e and Sulfapyridin e, if the blood sample is drawn before clearance of the drug. [facility] [id number] [address] [place] [address] [place] [address] Hemoglobi n A1c November 10, 2024 12:51pm November 10, 2024 4:57pm 6.3 % 4.0-6.0 Estimated Average Glucose (eAG) calculation added as additional information. Hemoglobin A1C Reference Ranges <5.7% Normal Patient 5.7 - 6.4% Prediabetes >=6.5% Diabetic [place] [facility] [id number] [address] [place] [address] [place] [address] Estimated Average Glucose (eAG) November 10, 2024 12:51pm November 10, 2024 4:57pm 134 mg/dL 70-99 [facility] [id number] [address] [place] [address] [place] [address] Calcium Level November 10, 2024 12:51pm November 10, 2024 4:55pm 10.2 mg/dL 8.7-10.4 [place] [facility] [id number] [address] [place] [address] [place] [address] Total Bilirubin November 10, 2024 12:51pm November 10, 2024 4:57pm 0.60 mg/dL 0.3-1.2 [place] [facility] [id number] [address] [place] [address] [place] [address] Aspartate Amino Transf (AST/SGOT ) November 10, 2024 12:51pm November 10, 2024 4:56pm 17 U/L 13-40 [place] [facility] [id number] [address] [place] [address] [place] [address] Alanine Aminotran sferase November 10, 2024 12:51pm November 10, 2024 4:55pm 27 U/L 10-49 Falsely depressed or elevated results may occur on samples drawn from patients taking Sulfasalazin e and Sulfapyridin e, if the blood sample is drawn before clearance of the drug. [place] [facility] [id number] [address] [place] [address] [place] [address] Total Protein November 10, 2024 12:51pm November 10, 2024 4:55pm 6.8 g/dL 5.7-8.2 [place] [facility] [id number] [address] [place] [address] [place] [address] Albumin November 10, 2024 12:51pm November 10, 2024 4:55pm 3.8 g/dL 3.4-5.0 [place] [facility] [id number] [address] [place] [address] [place] [address] Albumin/G lobulin Ratio November 10, 2024 12:51pm November 10, 2024 4:55pm 1.3 Ratio 1.0-2.0 [place] [facility] [id number] [address] [place] [address] [place] [address] Triglycer ides Level November 10, 2024 12:51pm November 10, 2024 4:55pm 168 mg/dL 0-150 Triglyceride Interpretati on Normal: <150 mg/dL Borderline High: 150 - 199 mg/dL High: 200 - 499 mg/dL Very High: >=500 mg/dL [place] [facility] [id number] [address] [place] [address] [place] [address] Cholester ol Level November 10, 2024 12:51pm November 10, 2024 4:56pm 162 mg/dL 0-200 [place] [facility] [id number] [address] [place] [address] [place] [address] LDL Cholester ol, Calculate d November 10, 2024 12:51pm November 10, 2024 4:57pm 87 mg/dL 0-99 [place] [facility] [id number] [address] [place] [address] [place] [address] VLDL Cholester ol November 10, 2024 12:51pm November 10, 2024 4:55pm 34 mg/dL 0-30 [place] [facility] [id number] [address] [place] [address] [place] [address] HDL Cholester ol November 10, 2024 12:51pm November 10, 2024 4:57pm 41.9 mg/dL 40-60 [place] [facility] [id number] [address] [place] [address] [place] [address] Cholester ol/HDL Ratio November 10, 2024 12:51pm November 10, 2024 4:57pm 4 Ratio 4-5 [place] [facility] [id number] [address] [place] [address] [place] [address] Alkaline Phosphata se November 10, 2024 12:51pm November 10, 2024 4:55pm 97 U/L 46-116 [place] [facility] [id number] [address] [place] [address] [place] [address] Vitamin B12 Level November 10, 2024 12:51pm November 10, 2024 6:03pm 441 pg/mL 211-911 Falsely depressed or elevated results may occur on samples drawn from patients taking supplements that contain Biotin in excess of the daily recommended allowance, if the blood sample is drawn before clearance of the drug. [facility] [id number] [address] [place] [address] [place] [address] Thyroid Stimulati ng Hormone (TSH) November 10, 2024 12:51pm November 10, 2024 4:55pm 2.067 mIU/mL 0.55-4.78 Falsely depressed or elevated results may occur on samples drawn from patients taking supplements that contain Biotin in excess of the daily recommended allowance, if the blood sample is drawn before clearance of the drug. [place] [facility] [id number] [address] [place] [address] [place] [address] Vital Signs Vital Reading Result Reference Range Collection Date/Time Height 66 [in_i] January 03 1:27pm Weight 218.37 [lb_av] January 03 1:27pm Body Temperature 98.0 [degF] 97.6-99.6 January 03, 2025 1:27pm Heart Rate 78 /min 60-100 January 03 1:27pm Respiratory rate 16 /min 12-20 January 03, 2025 1:27pm Oxygen saturation by Pulse oximetry 95 % 95-100 January 03, 2025 1:2 7pm BP Systolic 135 mm[Hg] 90-120 January 03 1:27pm BP Diastolic 83 mm[Hg] 60-80 January 03 1:27pm BMI (Body Mass Index) 35.2 kg/m2 January 03, 2025 1:27pm Insurance Providers Guarantor Ricardo Khan Address [address] [facility] [address] Contact Info. Home Phone: Payer Policy Id Subscriber's Name Subscriber Id Effectiv e Date Expiration Date [employer] HMO [id number] 7 Ricardo Khan [id number] [facility] [id number] 7 Ricardo Khan [id number] Encounters Encounter Location(s) Arrival/Admit Date Discharge/Depart Date Provider(s) Departed Clinical -[facility] November 10, 2024 2:58pm November 10, 2024 2:59pm Melissa Andersen DO Departed Physician/Prov ider Office Visit -[facility] January 03, 2025 12:36pm January 03, 2025 1:48pm Lizy Mack APRN
[2025-01-10 10:15] VITALS: BP 114/69; PULSE 86; RESP 17; O2SAT 96
[2025-01-10] MEDS: LEUPROLIDE 45 MG IM (10:15)
[2025-01-10 10:17] LABS: Basophils % 0.6 % (0.1-2.0); Hematocrit 41.5 % (42.0-52.0); Hemoglobin 13.7 g/dL (14.1-18.0); Lymphocytes # 1.2 K/mm3 (0.7-4.5); Lymphocytes % 19.2 % (10-50); Mean Corpuscular Hemoglobin 29.8 pg (27.0-31.2); Mean Corpuscular Volume 90.4 fl (80-94); Mean Platelet Volume 8.8 fl (7.4-10.4); Monocytes # 0.3 K/mm3 (0.1-1.0); Monocytes % 5.3 % (1.7-9.3); Neutrophils # 4.4 K/mm3 (1.8-7.8); Neutrophils % 70.4 % (37.0-80.0); Nucleated Red Blood Cells # 0 10^3/uL; Nucleated Red Blood Cells % 0 %; Platelet Count 224 K/mm3 (142-424); Red Blood Count 4.59 M/mm3 (4.60-6.20); Red Cell Distribution Width 12.7 % (11.5-17.5); White Blood Count 6.2 K/mm3 (4.8-10.8)
[2025-01-10 10:19] LABS: Chloride 103 mmol/L (98-107)
[2025-01-10 10:20] LABS: Potassium 3.9 mmoL/L (3.5-5.1)
[2025-01-10 10:22] LABS: Blood Urea Nitrogen 18 mg/dl (9-20); Estimated Glomerular Filt Rate 67 ml/min (>60); GFR (African American) 81 ML/MIN (>60)
[2025-01-10 10:23] LABS: Alanine Aminotransferase 32 U/L (12-78); Albumin/Globulin Ratio 1.3 (1.1-1.8); Alkaline Phosphatase 94 U/L (38-126); Aspartate Amino Transferase 30 U/L (17-59); Bilirubin,Total 0.6 mg/dl (0.2-1.3); Carbon Dioxide 30 mmol/L (22.0-30.0); Glucose 200 mg/dl (74-100)
--- NOTE | 2025-01-10 10:56 | PC.NURSE ---
1005-Blood drawn from left AC using butterfly needle to check labs per Dr Ching.
[2025-01-10 11:40] LABS: Prostate Specific Ag, Diagnost < 0.064 ng/ml (0.0-4.0)
[2025-01-10 11:45] LABS: Anion Gap 8.9 mEq/L (5-15); Sodium 138 mmol/L (136-145)
== END 2025-01-10 10:30 | disposition home or self-care (01) ==
LOC: INF 09:54
PROVIDERS: PCP Family Medicine; Visit Provider Internal Medicine Medical Oncology
DX: C61 Malignant neoplasm of prostate (principal)
CPT/HCPCS: 80053; 84153; 85025; 96372; J9217

== ENCOUNTER 2025-07-06 10:38 | Outpatient (CLI) | payer MEDICARE, BC, SELFPAY ==
--- OUTSIDE RECORDS SUMMARY | 2024-12-23 17:30 | XMS_ITS ---
Author Organization [place] [facility] Address [address] [facility] [address] [facility] [address] [place] [address] Care Team Providers Care Destaticizer Feeder Name Role Phone Dash Piedra Primary Care Provider Migration, Provider Unavailable Unavailable REASON FOR VISIT Multum To Medispan Conversion Encounter Medications Medication SIG (Take, Route, Frequency, Duration) Notes Start Date End Date Status LISINOPRIL /HCTZ 12.5 MG-20 MG 1 TAB(S) ORALLY ONCE A DAY; Duration: 90 DAYS *Please review for potential replacement for e-prescription and drug interaction check* Active Encounters Encounter Location Date Provider Diagnosis [facility] [address] [facility] [address] [facility] [address] [place] [address] 12/23/2024 Provider Migration Plan Of Treatment No Information Progress Notes * Ricardo FERNANDEZDOB:[birth year] (69 yo M)Acc No.[id number]:12/23/2024 Patient: Jh SATISHRicardo Provider: Selene winn Migration :1955 A ge:69 Y S ex:Male Date:12/23/2024 Address:[id number] Pcp:Dash Piedra Subjective: * Chief Complaints: * 1 . Multum To Medispan Conversion Encounter. * Medical History: * Medications: T aking LISINOPRIL /HCTZ 12.5 MG-20 MG TABLET 1 TAB(S) ORALLY ONCE A DAY , Notes to Pharmacist: *Please review for potential replacement for e-prescription and drug interaction check* Objective: * Vitals: Assessment: Plan: * Treatment: * * Electronic signature of Jimena miramontes Migration on 07/06/2025 at 10:45 AM EDT Sign off status: Pending * Provider: Selene winn Migration Date: 0 12/23/2024 Generated for Bran corona/Rafael/Del on: 1 10:45 AM EDT
--- OUTSIDE RECORDS SUMMARY | 2025-05-08 21:24 | XMS_ITS | Continuity of Care Document ---
Author Organization [facility] Address [address] [place] [address] Donna sylvester [place], [place] [address] Support Name Relationship Address Phone Sally Rodo Personal Relationship Unknown Melissa Musa DO Personal Relationship Q [facility] [place], [place] [address] Care Teams Patient Care Team Team Status: Active Member Role Status Dates Rodo Zavala Primary Care Provider Active Patient Care Team Team Status: Inactive Member Role Status Dates Rodo Zavala Primary Care Provider Active Start: May 08, 2025 End: May 08, 2025 Melissa Andersen DO Attending Provider Active Start: May 08, 2025 End: May 08, 2025 Chief Complaint and Reason for Visit Chief Complaint Admit Date labs May 08, 2025 4: 03pm Allergies, Adverse Reactions, Alerts No known allergies Social History Smoking Status Status Start Date End Date Date of Observa tion Never smoked tobacco (finding) February 16, 2023 8:32am Observation Status Observation Response Date of Response Legal Sex Male Sex Assigned At Male July [id number] Problems Active Problems Medical Problem Onset Date Status Acute cervical myofascial strain Unknown Active Acute thoracic myofascial strain Unknown Active Trauma Unknown Active Contusion of left chest wall Unknown Act andrade Laceration of left ring finger Unknown A ctive Head injury Unknown Active Hypertension Unknown Active Acute lumbar myofascial strain Unknown A ctive Obesity (BMI 30-39.9) Unknown Active Injury of left shoulder Unknown Active Medications Medication Status Dose Units Route Directions Qty Days St art Date Stop Date End Date Instructions Adherence Lisinopril- Hydrochloro thiazide 20-25 mg tablet Active 1 TAB PO DAILY March 22, 2023 12:00a m Unknown Omeprazole 20 mg capsule,del ayed release(DR/ EC) Active 20 MG PO DAILY January 03, 2025 12:00a m Unknown Leuprolide Acetate (6 Month) (Eligard (6 Month)) 45 mg syringe Active 45 MG SUBCUT EVERY 6 MONTHS January 03, 2025 12:00a m Unknown Relevant Diagnostic Tests and/or Laboratory Data Laboratory Results Test Collection Date/Time Result Date/Time Result Interpretation Reference Range Result Comment Performing Site Sodium Level May 08, 2025 11:59am May 08, 2025 4:57pm 139 mmol/L 136-145 [facility] [id number] [place] [id number] Potassium Level May 08, 2025 11:59am May 08, 2025 4:57pm 3.6 mmol/L 3.5-5.1 [facility] [id number] [address] [place] [id number] Chloride Level May 08, 2025 11:59am May 08, 2025 4:57pm 100 mmol/L 98-107 [facility] [id number] [address] [place] [address] Carbon Dioxide Level May 08, 2025 11:59am May 08, 2025 5:02pm 27.3 mmol/L 20.0-31.0 [facility] [id number] [address] [place] [id number] Anion Gap May 08, 2025 11:59am May 08, 2025 5:02pm 11.7 mmol/L 5.0-15.0 [facility] [id number] [address] [place] [id number] Blood Urea Nitrogen May 08, 2025 11:59am May 08, 2025 5:07pm 22 mg/dL 9-23 [facility] [id number] [address] [place] [address] Creatinin e May 08, 2025 11:59am May 08, 2025 5:09pm 1.01 mg/dL 0.73-1.18 [facility] [id number] [address] [place] [address] Estimat Glomerula r Filtratio n Rate May 08, 2025 11:59am May 08, 2025 5:09pm 81.5 eGFR Interpretati on: Disease State Ref Ranges [...] determinatio ns of GFR should be obtained. [facility] [id number] [address] [place] [id number] BUN/Creat inine Ratio May 08, 2025 11:59am May 08, 2025 5:09pm 21.8 Ratio 6.0-20.0 [facility] [id number] [address] [place] [id number] Glucose Level May 08, 2025 11:59am May 08, 2025 5:07pm 146 mg/dL 74-106 Falsely depressed or elevated results may occur on samples drawn from patients taking Sulfasalazin e and Sulfapyridin e, if the blood sample is drawn before clearance of the drug. [facility] [id number] [address] [place] [id number] Calcium Level May 08, 2025 11:59am May 08, 2025 5:02pm 8.9 mg/dL 8.7-10.4 [facility] [id number] [address] [place] Zhang [address] Total Bilirubin May 08, 2025 11:59am May 08, 2025 5:09pm 0.4 mg/dL 0.2-1.1 [facility] [id number] [address] [place] Zhang [address] Aspartate Amino Transf (AST/SGOT ) May 08, 2025 11:59am May 08, 2025 5:09pm 29 U/L 0-33 [facility] [id number] [address] [place] [address] Alanine Aminotran sferase May 08, 2025 11:59am May 08, 2025 5:09pm 34 U/L 10-49 Falsely depressed or elevated results may occur on samples drawn from patients taking Sulfasalazin e and Sulfapyridin e, if the blood sample is drawn before clearance of the drug. [facility] [id number] [address] [place] Zhang [address] Total Protein May 08, 2025 11:59am May 08, 2025 5:06pm 6.6 g/dL 5.7-8.2 [facility] [id number] [address] [place] Zhang [address] Albumin May 08, 2025 11:59am May 08, 2025 5:01pm 3.7 g/dL 3.4-5.0 [facility] [id number] [address] [place] Zhang [address] Albumin/G lobulin Ratio May 08, 2025 11:59am May 08, 2025 5:06pm 1.3 Ratio 1.0-2.0 [facility] [id number] [address] [place] [address] Alkaline Phosphata se May 08, 2025 11:59am May 08, 2025 5:07pm 97 U/L 46-116 [facility] [id number] [address] [place] [id number] Insurance Providers Guarantor Ricardo Khan Address [address] [place] [id number] Contact Info. Home Phone: Payer Policy Id Subscriber's Name Subscriber Id Effectiv e Date Expiration Date [employer] HMO [id number] 7 Ricardo Khan [id number] [facility] [id number] Ricardo Khan [id number] Encounters Encounter Location(s) Arrival/Admit Date Discharge/Depart Date Provider(s) Departed Clinical -[facility] Specimen May 08, 2025 4:03pm May 08, 2025 4:04pm Melissa Andersen DO Plan of Treatment Future Tests Future scheduled test information is unavailable Pending Tests Test Name Ordered Date Scheduled Date Hemoglobin A1c May 08, 2025 11:59am Estimated Average Glucose (eAG) May 08 11:59am Future Visits Future appointment information is unavailable Referrals to Other Providers Referral information is unavailable Future Procedures Future procedure information is unavailable Future Medications Future medication information is unavailable Patient Instructions Patient instructions are unavailable
--- NOTE | 2025-07-06 10:40 | PC.NURSE ---
stuck patient with a 23g butterfly needle x1 attempt in [facility]. labs obtained, orders placed, labs sent to lab. needle removed with 2x2s and coban applied. bleeding controlled. pt tolerated well.
--- OUTSIDE RECORDS SUMMARY | 2025-07-06 10:46 | XMS_ITS | Clinical Summary ---
Author Organization Healthcare Address [address] [place] [address] Care Team Providers Care Credit Manager Name Role Phone Js Underwood MD Unavailable [phone] Cristian Persaud MD Unavailable [phone] Melissa Andersen DO Primary Care Provider Allergies No known active allergies Medications leuprolide (Lupron Depot) 45 MG injection Inject 45 mg under the skin. Active lisinopril-hydr oCHLOROthiazide 20-25 MG tablet Take 1 tablet by mouth daily. 08/11/2023 Active pantoprazole (Protonix) 40 MG EC tablet Take 1 tablet by mouth daily before breakfast. Do not crush, chew, or split. Active omeprazole (PriLOSEC) [address] capsule Take 1 capsule by mouth daily. 04/11/2025 Active Active Problems Problem Noted Date Diagnosed Date HTN (hypertension) 04/09/2025 Rectal mass 03/18/2021 Malignant neoplasm of rectum 03/18/2021 Cancer Staging:Clinical:Stage IIIB(cT3, cN1b, cM0) - Unsigned Prostate cancer 11/03/2019 Encounters Date Type Department Care Team Description 04/17/2025 10:30 AM EDT Office Visit [facility] Multidisciplinary Oncology Clinic [address] [place] [address] Cristian Persaud MD Malignant neoplasm of rectum (CMS/HCC) (Primary Dx) 04/17/2025 7:34 AM EDT - 04/17/2025 11:59 PM EDT Hospital Encounter [facility] [address] [place] [address] Malignant neoplasm of rectum (CMS/HCC) Discharge Disposition: Home or Self Care 04/17/2025 Travel 04/09/2025 10:31 AM EDT - 04/09/2025 11:59 PM EDT Hospital Encounter [facility] [address] [place] [address] Malignant neoplasm of rectum (CMS/HCC) Discharge Disposition: Home or Self Care 04/09/2025 9:29 AM EDT Anesthesia Event [facility] [address] [place] [address] Alexy Santos MD Edwards, Jennifer M, CRNA, JAMES 04/09/2025 7:35 AM EDT - 04/09/2025 10:30 AM EDT Hospital Encounter [facility] [address] [place] [address] Cristian Persaud MD Malignant neoplasm of rectum (CMS/HCC) Discharge Disposition: Home or Self Care 04/09/2025 Travel from Last 3 Months Social History Tobacco Use Types Packs/Day Years Used Date Smoking Tobacco: Never Smokeless Tobacco: Never Tobacco Cessation:Counseling Given: Not Answered Alcohol Use Standard Drinks/Week Comments Never 0 (1 standard drink = 0.6 oz pur e alcohol) sometimes PHQ-2A Answer Date Recorded Depression Risk 0 10/12/2023 Sex and Gender Information Value Date Recorded Sex Assigned at Male 03/27/2021 12:44 PM EDT Legal Sex Male 8:30 PM EDT Gender Identity Male 03/27/2021 12:44 PM EDT Sexual Orientation Straight 03/27/2021 12 :44 PM EDT Last Filed Vital Signs Vital Sign Reading Time Taken Comments Blood Pressure 126/82 04/17/2025 10:07 AM EDT Pulse 71 04/17/2025 10:07 AM EDT Temperature 36.7 C (98.1 F) 04/17/2025 10:07 AM EDT Respiratory Rate 18 04/09/2025 10:05 AM EDT Oxygen Saturation 94% 04/17/2025 10:07 AM EDT Inhaled Oxygen Concentration - - Weight 98.9 kg (218 lb) 04/17/2025 10:07 AM EDT Height 167.6 cm (5' 6 ) 04/17/2025 10:07 AM EDT Body Mass Index 35.19 04/17/2025 10:07 AM EDT Plan of Treatment Health Maintenance Due Date Last Done Comments [facility]-Hepatitis C Screening 1955 [facility]-Medicare Annual Wellness (AWV) 1955 [facility]-/Child/Adol SDOH Screenings 1957 [id number] Vaccine (#1) 1962 [facility]- SDOH Screenings 1975 [facility]-Adult SDOH Screenings 1975 [facility]-DTaP,Tdap,and Td Vaccines (1 - Tdap) 1976 [facility]-Pneumococcal Vaccine: 50+ Years (1 of 2 - PCV) 1976 [facility]-Zoster Vaccines (1 of 2) 1976 CT Colonography 2002 FIT-DNA 2002 FIT 2002 FOBT 2002 [facility]-RSV Vaccine: 60+ Years or (1 - Risk 60-74 years 1-dose series) 2017 [facility]-Depression Screening 10/12/2024 10/12/2023 [facility]-Influenza Vaccine (#1) 2025 Colonoscopy 04/04/2026 04/05/2023 [facility]-Colorectal Cancer Screening 04/04/2026 Sigmoidoscopy 04/09/2030 04/09/2025, 03/21, 10/12/2022, Additional history exists [facility]-Obesity Intervention Completed 024, 04/13/2023, 01/05/2023, Additional history exists HPV Vaccines Aged Out No longer eligi ble based on patient's age to complete this topic [facility]-HIB Vaccines Aged Out No longer e ligible based on patient's age to complete this topic [facility]-Hepatitis A Vaccines Aged Out No longer eligible based on patient's age to complete this topic [facility]-IPV Vaccines Aged Out No longer e ligible based on patient's age to complete this topic [facility]-Rotavirus Vaccines Aged Out No lo nger eligible based on patient's age to complete this topic Procedures Procedure Name Priority Date/Time Associated Diagnosis Comments CEA, SERUM Routine 04/17/2025 9:48 AM EDT Malignant neoplasm of rectum (CMS/HCC) MR PELVIS W AND WO IV CONTRAST Routine 04/17/2025 9:15 AM EDT Malignant neoplasm of rectum (CMS/HCC) CT CHEST W IV CONTRAST Routine 11:19 AM EDT Malignant neoplasm of rectum (CMS/HCC) CT ABDOMEN PELVIS W IV CONTRAST Routine 04/09/2025 11:19 AM EDT Malignant neoplasm of rectum (CMS/HCC) FLEXIBLE SIGMOIDOSCOPY Routine 9:52 AM EDT Malignant neoplasm of rectum (CMS/HCC) ANESTHESIA PERIPHERAL IV PLACEMENT Routine 04/09/2025 9:35 AM EDT COLONOSCOPY Routine 04/05/2023 8:15 AM EDT Rectal cancer (CMS/HCC) from Last 3 Months or Most Recently Relevant to Health Maintenance Results * CEA (04/17/2025 9:48 AM EDT) CEA, Serum 3.2 <4.0 ng/mL 04/17/2025 11:16 AM EDT [facility] Blood Venous blood specimen / Unknown Venipuncture / Unknown 04/17/2025 9:48 AM EDT 04/17/2025 10:18 AM EDT Narrative [facility] - 04/17/2025 11:16 AM EDT Normal range for smokers: < 5.5 ng/ml Normal range for non-smokers: <=4.0 ng/ml Performed by [employer] electrochemiluminescent immunoassay. Results obtained with different test methods or kits cannot be used interchangeably. us Cristian Persaud MD LAB BLOOD ORDERABLES Final Res ult [facility] [address] [place] [address] * MR Pelvis w and wo IV Contrast (04/17/2025 9:15 AM EDT) Anatomical Region Laterality Modality Abdomen Magnetic Resonan ce Impressions 04/17/2025 9:36 AM EDT Since 03/27/2021, post treatment primary tumor assessment reflects complete response. Mesorectal lymph nodes: no suspicious mesorectal nodes. Extramesorectal lymph nodes: No suspicious extramesorectal lymph nodes. Stable left common and external iliac lymph nodes. CRITICAL RESULT: No. COMMUNICATION: Per this written report. Drafted by Bernadette Hassan MD on 04/17/2025 9:32 AM Final report signed by Bernadette Hassan MD on 04/17/2025 9:36 AM Narrative 04/17/2025 9:36 AM EDT CLINICAL INDICATION: Rectal Cancer RESTAGING. Pretreatment Tumor staging: T3c N+ Prior treatment: Neoadjuvant chemoradiation TECHNIQUE: Multiplanar, multisequence MR imaging of the pelvis was performed on a 3T magnet before and after administration of 10 mL of intravenous Gadolinium contrast. COMPARISON: MR pelvis-04/10/2024, 04/13/2023, 07/07/2022. FINDINGS: Treated primary tumor characteristics: Redemonstration of a hypointense scarring along the anterior midrectum at 10-11 o'clock, likely representing fibrotic changes which is unchanged compared to the prior study (series 8 image 9). No enhancement seen. Restricted diffusion in tumor or tumor bed is absent Distance of inferior margin of treated tumor to anal verge: 8 cm Distance of inferior margin of treated tumor to top of sphincter complex/anorectal junction: 5-6 cm Relationship of treated tumor to anterior peritoneal reflection: Straddles Current craniocaudal length of 1.5 cm, similar to recent prior and has decreased compared to pretreatment craniocaudal length of 7 cm on the study dated 03/27/2021. Invasion of anal sphincter complex: Not applicable due to tumor location. Extramural Vascular Invasion (EMVI): No. None evident in pretreatment. Mesorectal Fascia (MRF): Shortest distance of tumor/fibrosis to mesorectal fascia: 1 cm Tumor deposit, LN or EMVI does not threaten ( e 1 m and d 2 mm) or invade (< 1 mm) the Mesorectal Fascia. Lymph Nodes: Mesorectal/superior rectal lymph nodes and/or tumor deposits: N0. No visible lymph nodes/deposits . Extra-mesorectal lymph nodes: No suspicious extramesorectal lymph nodes. Stable left common and external iliac nodes measuring 11 mm short axis (series 5 images 5, 12). Procedure Note Bernadette Hassan MD - 04/17/2025 CLINICAL INDICATION: Rectal Cancer RESTAGING. Pretreatment Tumor staging: T3c N+ Prior treatment: Neoadjuvant chemoradiation TECHNIQUE: Multiplanar, multisequence MR imaging of the pelvis was performed on a 3Tmagnet before and after administration of 10 mL of intravenous Gadoliniumcontrast. COMPARISON: MR pelvis-04/10/2024, 04/13/2023, 07/07/2022. FINDINGS: Treated primary tumor characteristics: Redemonstration of a hypointensescarring along the anterior midrectum at 10-11 o'clock, likelyrepresenting fibrotic changes which is unchanged compared to the priorstudy (series 8 image 9). No enhancement seen. Restricted diffusion in tumor or tumor bed is absent Distance of inferior margin of treated tumor to anal verge: 8 cm Distance of inferior margin of treated tumor to top of sphinctercomplex/anorectal junction: 5-6 cm Relationship of treated tumor to anterior peritoneal reflection:Straddles Current craniocaudal length of 1.5 cm, similar to recent prior and hasdecreased compared to pretreatment craniocaudal length of 7 cm on thestudy dated 03/27/2021. Invasion of anal sphincter complex: Not applicable due to tumorlocation. Extramural Vascular Invasion (EMVI): No. None evident in pretreatment. Mesorectal Fascia (MRF): Shortest distance of tumor/fibrosis tomesorectal fascia: 1 cm Tumor deposit, LN or EMVI does not threaten ( e 1 m and d 2 mm) orinvade (< 1 mm) the Mesorectal Fascia. Lymph Nodes: Mesorectal/superior rectal lymph nodes and/or tumor deposits:N0. No visible lymph nodes/deposits . Extra-mesorectal lymph nodes: No suspicious extramesorectal lymph nodes.Stable left common and external iliac nodes measuring 11 mm short axis(series 5 images 5, 12). IMPRESSION: Since 03/27/2021, post treatment primary tumor assessment reflects completeresponse. Mesorectal lymph nodes: no suspicious mesorectal nodes. Extramesorectal lymph nodes: No suspicious extramesorectal lymph nodes.Stable left common and external iliac lymph nodes. CRITICAL RESULT: No. COMMUNICATION: Per this written report. Drafted by Bernadette Hassan MD on 04/17/2025 9:32 AM Final report signed by Bernadette Hassan MD on 04/17/2025 9:36 AM Cristian Persaud MD IMG MRI PROCEDURES Final Resul t * CT Abdomen Pelvis w IV Contrast (04/09/2025 11:19 AM EDT) Anatomical Region Laterality Modality Abdomen, Pelvis Computed Tomogra phy Impressions 04/09/2025 2:23 PM EDT Chest: No evidence of disease progression. Unchanged small pulmonary nodules. Abdomen/Pelvis: No evidence of disease progression. Persistent mild rectal wall thickening, without a distinct mass. CRITICAL RESULT: No. COMMUNICATION: Per this written report. By electronically signing this report, I, the attending physician, attest that I have personally reviewed the images/data for the above examination(s) and agree with the final edited report. Drafted by Fernando Mccord MD on 04/09/2025 11:45 AM Final report signed by Isaias Comer MD on 04/09/2025 2:23 PM Narrative 04/09/2025 2:23 PM EDT CLINICAL INDICATION: Rectal cancer, staging TECHNIQUE: Multiple axial CT images were obtained from thoracic inlet through pubic symphysis following administration of IV contrast, Omnipaque 300, 100 mL. Reformatted images in the coronal and sagittal planes were generated from the axial data set to facilitate diagnostic accuracy. Total DLP (Dose-Length Product): 817.99 mGy.cm (accession [id number]), 817.99 mGy.cm (accession [id number]) Please note: The reported value represents the total of one or more individual components during the CT acquisition on this date and at this time, and as such, the same value may appear in more than one CT report depending on the interpreting/reporting physicians. COMPARISON: October 12, 2023, FINDINGS: Chest: Lymph Nodes and Mediastinum: No lymphadenopathy by CT size criteria. No mediastinal mass lesions. No suspicious thyroid findings. Cardiovascular: The heart is normal in caliber. Thoracic great vessels are patent. Lungs and Pleura: Unchanged 4 mm subpleural nodule in the right middle lobe (series 2 image 248). Multiple additional unchanged small pulmonary nodules. No pleural effusions or suspicious thickening. Musculoskeletal and Body Wall: No clearly aggressive bone lesions. Abdomen/Pelvis: Solid Abdominal Organs: Redemonstration of hepatic steatosis, with volume redistribution compatible with atypical morphology. Punctate gallstones layering the dependent portion of the gallbladder near the neck. No significant intrahepatic or extrahepatic biliary dilatation. Unremarkable spleen. No suspicious pancreatic findings. No suspicious adrenal findings. No suspicious renal mass lesions. No hydronephrosis. GI Tract/Mesentery/Peritoneum: The large and small bowel appear normal in caliber. Persistent rectal wall thickening, with mild mesenteric stranding, unchanged. No discrete mass. Pelvic Viscera: No suspicious pelvic mass lesions. Mild bladder wall thickening. Lymph Nodes/Vasculature: Unchanged left para-aortic lymph node measuring approximately 14 mm (series 3 image 139), unchanged. Left common iliac lymph node which is approximately 9 mm (series 3 image 204), with calcifications. Left external iliac lymph node measuring approximately 10 mm (series 3 image 234), unchanged. The aortoiliac vasculature is patent and normal in caliber. Free Fluid: No ascites. Musculoskeletal and Body Wall: No aggressive or suspicious findings. Procedure Note Isaias Comer MD - 04/09/2025 CLINICAL INDICATION: Rectal cancer, staging TECHNIQUE: Multiple axial CT images were obtained from thoracic inlet through pubicsymphysis following administration of IV contrast, Omnipaque 300, 100 mL.Reformatted images in the coronal and sagittal planes were generated fromthe axial data set to facilitate diagnostic accuracy. Total DLP (Dose-Length Product): 817.99 mGy.cm (accession [id number]),817.99 mGy.cm (accession [id number]) Please note: The reported valuerepresents the total of one or more individual components during the CTacquisition on this date and at this time, and as such, the same value mayappear in more than one CT report depending on the interpreting/reportingphysicians. COMPARISON: October 12, 2023, FINDINGS: Chest: Lymph Nodes and Mediastinum: No lymphadenopathy by CT size criteria. Nomediastinal mass lesions. No suspicious thyroid findings. Cardiovascular: The heart is normal in caliber. Thoracic great vessels arepatent. Lungs and Pleura: Unchanged 4 mm subpleural nodule in the right middlelobe (series 2 image 248). Multiple additional unchanged small pulmonarynodules. No pleural effusions or suspicious thickening. Musculoskeletal and Body Wall: No clearly aggressive bone lesions. Abdomen/Pelvis: Solid Abdominal Organs: Redemonstration of hepatic steatosis, with volumeredistribution compatible with atypical morphology. Punctate gallstoneslayering the dependent portion of the gallbladder near the neck. Nosignificant intrahepatic or extrahepatic biliary dilatation. Unremarkablespleen. No suspicious pancreatic findings. No suspicious adrenal findings.No suspicious renal mass lesions. No hydronephrosis. GI Tract/Mesentery/Peritoneum: The large and small bowel appear normal incaliber. Persistent rectal wall thickening, with mild mesentericstranding, unchanged. No discrete mass. Pelvic Viscera: No suspicious pelvic mass lesions. Mild bladder wallthickening. Lymph Nodes/Vasculature: Unchanged left para-aortic lymph node measuringapproximately 14 mm (series 3 image 139), unchanged. Left common iliaclymph node which is approximately 9 mm (series 3 image 204), withcalcifications. Left external iliac lymph node measuring approximately 10mm (series 3 image 234), unchanged. The aortoiliac vasculature is patentand normal in caliber. Free Fluid: No ascites. Musculoskeletal and Body Wall: No aggressive or suspicious findings. IMPRESSION: Chest: No evidence of disease progression. Unchanged small pulmonarynodules. Abdomen/Pelvis: No evidence of disease progression. Persistent mild rectalwall thickening, without a distinct mass. CRITICAL RESULT: No. COMMUNICATION: Per this written report. By electronically signing this report, I, the attending physician, attsimonethat I have personally reviewed the images/data for the aboveexamination(s) and agree with the final edited report. Drafted by Fernando Mccord MD on 04/09/2025 11:45 AM Final report signed by Isaias Comer MD on 04/09/2025 2:23 PM Cristian Persaud MD IMG CT PROCEDURES Final Result * CT Chest w IV Contrast (04/09/2025 11:19 AM EDT) Anatomical Region Laterality Modality Chest Computed Tomogra phy Impressions 04/09/2025 2:23 PM EDT Chest: No evidence of disease progression. Unchanged small pulmonary nodules. Abdomen/Pelvis: No evidence of disease progression. Persistent mild rectal wall thickening, without a distinct mass. CRITICAL RESULT: No. COMMUNICATION: Per this written report. By electronically signing this report, I, the attending physician, attest that I have personally reviewed the images/data for the above examination(s) and agree with the final edited report. Drafted by Fernando Mccord MD on 04/09/2025 11:45 AM Final report signed by Isaias Comer MD on 04/09/2025 2:23 PM Narrative 04/09/2025 2:23 PM EDT CLINICAL INDICATION: Rectal cancer, staging TECHNIQUE: Multiple axial CT images were obtained from thoracic inlet through pubic symphysis following administration of IV contrast, Omnipaque 300, 100 mL. Reformatted images in the coronal and sagittal planes were generated from the axial data set to facilitate diagnostic accuracy. Total DLP (Dose-Length Product): 817.99 mGy.cm (accession [id number]), 817.99 mGy.cm (accession [id number]) Please note: The reported value represents the total of one or more individual components during the CT acquisition on this date and at this time, and as such, the same value may appear in more than one CT report depending on the interpreting/reporting physicians. COMPARISON: October 12, 2023, FINDINGS: Chest: Lymph Nodes and Mediastinum: No lymphadenopathy by CT size criteria. No mediastinal mass lesions. No suspicious thyroid findings. Cardiovascular: The heart is normal in caliber. Thoracic great vessels are patent. Lungs and Pleura: Unchanged 4 mm subpleural nodule in the right middle lobe (series 2 image 248). Multiple additional unchanged small pulmonary nodules. No pleural effusions or suspicious thickening. Musculoskeletal and Body Wall: No clearly aggressive bone lesions. Abdomen/Pelvis: Solid Abdominal Organs: Redemonstration of hepatic steatosis, with volume redistribution compatible with atypical morphology. Punctate gallstones layering the dependent portion of the gallbladder near the neck. No significant intrahepatic or extrahepatic biliary dilatation. Unremarkable spleen. No suspicious pancreatic findings. No suspicious adrenal findings. No suspicious renal mass lesions. No hydronephrosis. GI Tract/Mesentery/Peritoneum: The large and small bowel appear normal in caliber. Persistent rectal wall thickening, with mild mesenteric stranding, unchanged. No discrete mass. Pelvic Viscera: No suspicious pelvic mass lesions. Mild bladder wall thickening. Lymph Nodes/Vasculature: Unchanged left para-aortic lymph node measuring approximately 14 mm (series 3 image 139), unchanged. Left common iliac lymph node which is approximately 9 mm (series 3 image 204), with calcifications. Left external iliac lymph node measuring approximately 10 mm (series 3 image 234), unchanged. The aortoiliac vasculature is patent and normal in caliber. Free Fluid: No ascites. Musculoskeletal and Body Wall: No aggressive or suspicious findings. Procedure Note Isaias Comer MD - 04/09/2025 CLINICAL INDICATION: Rectal cancer, staging TECHNIQUE: Multiple axial CT images were obtained from thoracic inlet through pubicsymphysis following administration of IV contrast, Omnipaque 300, 100 mL.Reformatted images in the coronal and sagittal planes were generated fromthe axial data set to facilitate diagnostic accuracy. Total DLP (Dose-Length Product): 817.99 mGy.cm (accession [id number]),817.99 mGy.cm (accession [id number]) Please note: The reported valuerepresents the total of one or more individual components during the CTacquisition on this date and at this time, and as such, the same value mayappear in more than one CT report depending on the interpreting/reportingphysicians. COMPARISON: October 12, 2023, FINDINGS: Chest: Lymph Nodes and Mediastinum: No lymphadenopathy by CT size criteria. Nomediastinal mass lesions. No suspicious thyroid findings. Cardiovascular: The heart is normal in caliber. Thoracic great vessels arepatent. Lungs and Pleura: Unchanged 4 mm subpleural nodule in the right middlelobe (series 2 image 248). Multiple additional unchanged small pulmonarynodules. No pleural effusions or suspicious thickening. Musculoskeletal and Body Wall: No clearly aggressive bone lesions. Abdomen/Pelvis: Solid Abdominal Organs: Redemonstration of hepatic steatosis, with volumeredistribution compatible with atypical morphology. Punctate gallstoneslayering the dependent portion of the gallbladder near the neck. Nosignificant intrahepatic or extrahepatic biliary dilatation. Unremarkablespleen. No suspicious pancreatic findings. No suspicious adrenal findings.No suspicious renal mass lesions. No hydronephrosis. GI Tract/Mesentery/Peritoneum: The large and small bowel appear normal incaliber. Persistent rectal wall thickening, with mild mesentericstranding, unchanged. No discrete mass. Pelvic Viscera: No suspicious pelvic mass lesions. Mild bladder wallthickening. Lymph Nodes/Vasculature: Unchanged left para-aortic lymph node measuringapproximately 14 mm (series 3 image 139), unchanged. Left common iliaclymph node which is approximately 9 mm (series 3 image 204), withcalcifications. Left external iliac lymph node measuring approximately 10mm (series 3 image 234), unchanged. The aortoiliac vasculature is patentand normal in caliber. Free Fluid: No ascites. Musculoskeletal and Body Wall: No aggressive or suspicious findings. IMPRESSION: Chest: No evidence of disease progression. Unchanged small pulmonarynodules. Abdomen/Pelvis: No evidence of disease progression. Persistent mild rectalwall thickening, without a distinct mass. CRITICAL RESULT: No. COMMUNICATION: Per this written report. By electronically signing this report, I, the attending physician, tom I have personally reviewed the images/data for the aboveexamination(s) and agree with the final edited report. Drafted by Fernando Mccord MD on 04/09/2025 11:45 AM Final report signed by Isaias Comer MD on 04/09/2025 2:23 PM Cristian Persaud MD IMG CT PROCEDURES Final Result * Flexible Sigmoidoscopy (04/09/2025 9:52 AM EDT) Anatomical Region Laterality Modality Endoscopy Narrative 04/09/2025 9:47 AM EDT Table formatting from the original result was not included. Impression: Normal. Flexible sigmoidoscopy performed in the setting of rectal cancer with complete response after total neoadjuvant therapy. Last flexible sigmoidoscopy in March 2024; normal. Today, normal flexible sigmoidoscopy once again noted. Scar present within the rectum. No evidence of mucosal recurrence. No masses, polyps, or lesions. Photographs compared with prior photographs in March 2024. No change. Recommend full colonoscopy in 1 year. Post Procedure Diagnosis None Recommendations Other Indication Malignant neoplasm of rectum (CMS/HCC) Medications See anesthesia record for anesthesia administered medications. Staff Staff Role Pascual Montanez [employer] Manufacturing Controls Engineer Raquel Frausto CRNA, DNP CRNA Hourigan, Jon S, MD Proceduralist Camila Mills, RN Endo Nurse Alexy Santos MD Anesthesiologist Preprocedure A history and physical has been performed, and patient medication allergies have been reviewed. The patient's tolerance of previous anesthesia has been reviewed. The risks and benefits of the procedure and the sedation options and risks were discussed with the patient. All questions were answered and informed consent obtained. Details of the Procedure The patient underwent monitored anesthesia care, which was administered by an anesthesia professional. The patient's blood pressure, heart rate, level of consciousness, oxygen saturation and respirations were monitored throughout the procedure. A digital rectal exam was performed. A perianal exam was performed. The scope was introduced through the anus and advanced to the sigmoid colon. Insufflated with carbon dioxide. Retroflexion was performed in the rectum. The quality of bowel preparation was evaluated using the [place] Bowel Preparation Scale with scores of: left colon = 2. Bowel prep was adequate. The patient experienced no blood loss. The procedure was not difficult. The patient tolerated the procedure well. There were no apparent adverse events. Attestation I personally performed the entire procedure Specimens No specimens were documented in this log. Findings All observed locations appeared normal. Cristian Persaud MD GI PROCEDURE ORDERABLES Final Result * Peripheral IV (04/09/2025 9:35 AM EDT) Narrative Raquel Frausto CRNA, DNP - 04/09/2025 9:35 AM EDT Raquel Frausto CRNA, DNP 04/09/2025 9:59 AM Peripheral IV Date/Time: 04/09/2025 9:35 AM Placement Needle size: 20 G Location: wrist Local anesthetic: none Site prep: alcohol Technique: anatomical landmarks Alexy Santos MD ANESTHESIA ORDERABLES Fin al Result * Colonoscopy (04/05/2023 8:15 AM EDT) Anatomical Region Laterality Modality Endoscopy Narrative 04/05/2023 8:22 AM EDT Table formatting from the original result was not included. Impression: Normal. Mild, localized scarred mucosa in the distal rectum Normal colonoscopy in the setting of rectal cancer treated with neoadjuvant chemoradiation followed by complete response. No masses, polyps, or lesions. Scarred mucosa noted in the rectum consistent with prior tumor site. No evidence of recurrence. Overall normal colonoscopy. Recommend repeat colonoscopy in 3 years. Flexible sigmoidoscopy in 1 year. Continue MRI surveillance. Recommendation Repeat colonoscopy in 3 years Repeat colonoscopy in 3 years Indication Order Indication: Rectal cancer (CMS/HCC) Medications midazolam (Versed) injection 4 mg fentaNYL (Sublimaze) injection 100 mcg (Totals for administrations occurring from 0734 to 0815 on 04/05/23) Staff Staff Role Bo Freeman RN Endo Nurse Lissett, Sadi Valdez RN Endo Nurse Cristian Persaud MD Proceduralist Luzma Tracey MD Resident - Assisting Chad Gandhi Endo Manufacturing Controls Engineer Preprocedure A history and physical has been performed, and patient medication allergies have been reviewed. The patient's tolerance of previous anesthesia has been reviewed. The risks and benefits of the procedure and the sedation options and risks were discussed with the patient. All questions were answered and informed consent obtained. Details of the Procedure The patient underwent moderate sedation, which was administered by the procedural nurse. The patient's blood pressure, heart rate, level of consciousness, oxygen and respirations were monitored throughout the procedure. A digital rectal exam was performed. A perianal exam was performed. The scope was introduced through the anus and advanced to the cecum. Retroflexion was performed in the rectum. The quality of bowel preparation was evaluated using the [place] Bowel Preparation Scale with scores of: right colon = 2, transverse colon = 2, left colon = 2. The total BBPS score was 6. Bowel prep was adequate. The patient experienced no blood loss. The procedure was not difficult. The patient tolerated the procedure well. There were no apparent adverse events. Conscious sedation administered by myself, WINSTON Persaud MD; monitored and without complication. Sadi Galeana RN was independent observer. See nursing notes for details. Attestation I personally performed the entire procedure Events Procedure Events Event Event Time ENDO SCOPE IN TIME 04/05/2023 8:03 AM ENDO CECUM REACHED 04/05/2023 8:09 AM ENDO SCOPE OUT TIME 04/05/2023 8:13 AM Specimens No specimens were documented in this log. Findings Normal Mild, localized scarred mucosa in the distal rectum; no bleeding was identified us Cristian Persaud MD GI PROCEDURE ORDERABLES Final Result from Last 3 Months or Most Recently Relevant to Health Maintenance Insurance MEDICARE [facility] Care Teams Credit Manager Relationship Specialty Start Date End Date Melissa Andersen DO [address] [facility] [phone] PCP - General Family Medicine 04/10/24 Js Underwood MD [address] [place] [address] Radiation Oncologist Radiation Oncology 06/26/21 Cristian Persaud MD [address] [place] [id number] Surgeon Colon and Rectal Surgery 08/26/21
--- OUTSIDE RECORDS SUMMARY | 2025-07-06 10:46 | XMS_ITS ---
Author Organization Healthcare Address [address] [place] [address] Care Team Providers Care Civil Preparedness Officer Name Role Phone Js Underwood MD Unavailable [phone] Cristian Persaud MD Unavailable [phone] Melissa Andersen DO Primary Care Provider Active Problems Problem Noted Date Diagnosed Date HTN (hypertension) 04/09/2025 Rectal mass 03/18/2021 Malignant neoplasm of rectum 03/18/2021 Cancer Staging:Clinical:Stage IIIB(cT3, cN1b, cM0) - Unsigned Prostate cancer 11/03/2019 Current Treatment and Therapy Plans No current plan information found. Past Treatment and Therapy Plans No past plan information found. Past Radiation Episodes * VMAT: Midline PelvisOverview* First Treatment Date Last Treatment Date Treatment Site Technique Goal Episod e Provider 07/16/2021 08/22/2021 Midline Pelvis VMAT * Linked Problems Rectal cancer Treatment Courses* Course C1 07/16/2021 - 08/22/2021 Treatment Period Fraction Dose Fractions Total Dose Plans Planned A1A4 PELVIS 07/16/2021 - 08/22/2021 220 cGy 25 / 25 5,500 cGy Reference Points Delivered pelvis 07/16/2021 - 08/22/2021 5,500 cGy
--- OUTSIDE RECORDS SUMMARY | 2025-07-06 10:46 | XMS_ITS | Clinical Summary ---
Author Organization [facility] Address [address] [place] [address] Phone Care Team Providers Care Account Contact Associate Name Role Phone Dash Piedra MD Primary Care Provider [phone] Allergies No known active allergies Medications leuprolide, 6 month, (ELIGARD) 45 mg SubQ Syringe Subcutaneous (Inject under the skin) 45 mg once. Active pantoprazole (PROTONIX) 40 mg Oral Tablet, Delayed Release (E.C.) Take 1 Tab by mouth every morning (before breakfast). 30 Tab 5 0 Active Active Problems Problem Noted Date Diagnosed Date Abnormal CT scan, gastrointestinal tract 020 Overview (11/07/2019): Added automatically from request for surgery [id number] Prostate cancer 11/03/2019 Enlarged lymph nodes Medical History Medical History Date Comments Prostate cancer (HCC) Social History Tobacco Use Types Packs/Day Years Used Date Smoking Tobacco: Never Smokeless Tobacco: Never Alcohol Use Standard Drinks/Week Comments Yes 0 (1 standard drink = 0.6 oz pur e alcohol) AUDIT-C Answer Date Recorded Frequency of Alcohol Consumption Monthly or less 11/03/2019 Average Number of Drinks Not on file 020 Frequency of Binge Drinking Not on file 10/21 Sex and Gender Information Value Date Recorded Sex Assigned at Not on file Legal Sex Male 3:05 PM EST Gender Identity Not on file Sexual Orientation Not on file Last Filed Vital Signs Vital Sign Reading Time Taken Comments Blood Pressure 158/90 11/16/2019 5:10 PM EST Pulse 59 11/16/2019 5:10 PM EST Temperature 36.3 C (97.3 F) 11/16/2019 4:45 PM EST Respiratory Rate 16 11/16/2019 5:10 PM EST Oxygen Saturation 98% 11/16/2019 5:10 PM EST Inhaled Oxygen Concentration - - Weight 90.4 kg (199 lb 5 oz) 11/16/2019 2:29 PM EST Height 167.6 cm (5' 6 ) 11/16/2019 2:29 PM EST Body Mass Index 32.17 11/16/2019 2:29 PM EST Plan of Treatment Health Maintenance Due Date Last Done Comments Annual Wellness Exam 1960 Hepatitis C Screening 1975 DTaP/TDaP/Td (1 - Tdap) 1976 Cologuard 2002 FIT 2002 Virtual Colonography 2002 Pneumococcal Vaccine 50+ (1 of 1 - PCV) 2007 Zoster (1 of 2) 2007 COVID-19 Vaccine (1 - 2023- season) 2025 Influenza Vaccine (#1) 2025 Sigmoidoscopy 04/10/2029 04/10/2024, 2 11/2022, 04/06/2022, Additional history exists Colon Cancer Screening 04/05/2033 Colonoscopy 04/05/2033 04/05/2023 Hepatitis B Vaccine Aged Out No longe r eligible based on patient's age to complete this topic Meningococcal B Vaccine Aged Out No l onger eligible based on patient's age to complete this topic Insurance [employer] Care Teams Account Contact Associate Relationship Specialty Start Date End Date Dash Piedra MD [address] [place] [phone] PCP - General Internal Medicine-Adolescent Medicine 11/13/19
--- OUTSIDE RECORDS SUMMARY | 2025-07-06 10:46 | XMS_ITS | Clinical Summary ---
[facility] Address [address] [place] [address] Care Team Providers Care Bicycle Courier Name Role Phone Unavailable Primary Care Provider Unavailabl e Social History Tobacco Use Types Packs/Day Years Used Date Smoking Tobacco: Never Assessed Abuse Screen Answer Date Recorded Unsafe at Home or Work/School Not on file Feels Threatened by Someone? Not on file 08/2023 Does Anyone Keep You from Co ntacting Others or Doint Things Outside the Home? Not on file 07/01/2023 Physical Sign of Abuse Present Not on file 1 Housing Stability Answer Date Recorded Current Living Arrangements Not on file 06/20 Potentially Unsafe Housing Conditions Not on adolph e 07/01/2023 Family and Community Support Answer Sorin e Recorded Help with Day-to-Day Activities Not on file 07/01/2023 Lonely or Isolated Not on file 07/01/2023 Employment Answer Date Recorded Do you want help finding or keeping work or a delmy b? Not on file 07/01/2023 Disabilities Answer Date Recorded Concentrating, Remembering, or Making Decisions Difficulty Not on file 07/01/2023 Doing Errands Independently Difficulty Not on fi le 07/01/2023 Education Answer Date Recorded Help with school or training? Not on file Preferred Language Not on file 07/01/2023 Sex and Gender Information Value Date Recorded Sex Assigned at Not on file Legal Sex Male 1:04 PM EST Gender Identity Not on file Sexual Orientation Not on file Plan of Treatment Health Maintenance Due Date Last Done Comments ANNUAL PHYSICAL 1955 HEPATITIS C SCREENING 1957 TDAP/TD VACCINES (1 - Tdap) 1976 COLOGUARD 2002 COLON CANCER SCREENING 5 YEAR SIGMOIDOSCOPY 2002 COLONOSCOPY 2002 [address] CANCER SCREENING 2002 [address] COLONOGRAPHY 2002 FECAL OCCULT BLOOD TEST 2002 FIT Testing (1 year) 2002 Pneumococcal Vaccine 50+ (1 of 1 - PCV) 2007 ZOSTER VACCINE (1 of 2) 2007 AAA SCREEN ONCE 2022 INFLUENZA VACCINE 04/20/2025 COVID-19 Vaccine ( season) 2025 Insurance MEDICAID PENDING on file
--- OUTSIDE RECORDS SUMMARY | 2025-07-06 10:46 | XMS_ITS | Encounter Summary ---
Author Organization Healthcare Address [address] [place] [address] Care Team Providers Care Data Collection Specialist Name Role Phone Dash Piedra MD Primary Care Provider [phone] Js Underwood MD Unavailable [phone] Cristian Persaud MD Unavailable [phone] Lakshmi Santiago DO Primary Care Provider [phone] Melissa Andersen DO Primary Care Provider [phone] Encounter Details Date Type Department Care Team (Late st Contact Info) Description 03/20/2021 Lab Requisition [facility] [address] [place] [address] Cristian Persaud MD [address] [place] [address] Other specified diseases of anus and rectum Social History Tobacco Use Types Packs/Day Years Used Date Smoking Tobacco: Never Smokeless Tobacco: Never Alcohol Use Standard Drinks/Week Comments Yes 0 (1 standard drink = 0.6 oz pur e alcohol) sometimes Sex and Gender Information Value Date Recorded Sex Assigned at Male 03/27/2021 12:44 PM EDT Legal Sex Male 8:30 PM EDT Gender Identity Male 03/27/2021 12:44 PM EDT Sexual Orientation Straight 03/27/2021 12 :44 PM EDT COVID-19 Exposure Response Date Recorded In the last month, have you been in contact with someone who was confirmed or suspected to have Coronavirus / COVID-19? No / Unsure 03/18/2021 7:55 AM EDT documented as of this encounter Plan of Treatment Not on file documented as of this encounter Procedures Procedure Name Priority Date/Time Associated Diagnosis Comments SURGICAL PATHOLOGY CONSULT Routine 03/20/2021 12:09 PM EDT Other specified diseases of anus and rectum documented in this encounter Results * Surgical Pathology Consult (03/20/2021 12:09 PM EDT) Case Report Sugical Pathology Consult Case: [id number] Authorizing Provider: Cristian Persaud MD Collected: 03/20/2021 1209 Ordering Location: [facility] Lab Received: 03/20/2021 1210 Pathologist: Nani Easley MD Specimen: Rectal, OU [id number] 03/20/2021 1:36 PM EDT [facility] Final Diagnosis RECTUM, MASS, BIOPSY (OUTSIDE SLIDE #S [id number] - [id number]; DATE COLLECTED 03/12/2021): - ADENOCARCINOMA. 03/20/2021 1:36 PM EDT [facility] at 1336 EDT Clinical Information Rectal bleeding. 03/20/2021 1:36 PM EDT [facility] Gross Description A. Received along with a corresponding pathology report from [facility] Laboratory is 1 slide(s) labeled outside case: [id number] collected on 03/12/2021. 03/20/2021 1:36 PM EDT [facility] Intradepartmental Consultation with Agreement Case reviewed with Dr. Kidd. 03/20/2021 1:36 PM EDT [facility] Note: A resident was involved in the service. I attest I examined the relevant preparations for the specimens and confirmed the diagnosis or interpretation. 03/20/2021 1:36 PM EDT [facility] Tissue Specimen from rectum / Unknown 03/20/2021 12:09 PM EDT 03/20/2021 12:10 PM EDT us Cristian Persaud MD LAB PATHOLOGY ORDERABLES Final Result [facility] [address] [place] [address] documented in this encounter Visit Diagnoses Diagnosis Other specified diseases of anus and rectum documented in this encounter Additional Health Concerns Assessment Noted Time A fall risk assessment has been complete d for the patient 03/18/2021 8:18 AM EDT documented as of this encounter Care Teams Data Collection Specialist Relationship Specialty Start Date End Date Dash Piedra MD [address] [place] [address] PCP - General 03/12/21 01/04/23 Lakshmi Santiago DO [address] [place] [address] PCP - General 01/05/23 04/09/24 Melissa Andersen DO [address] [facility] [phone] PCP - General Family Medicine 04/10/24 Js Underwood MD [address] [facility] [address] [place] [phone] Radiation Oncologist Radiation Oncology 06/26/21 Cristian Persaud MD [address] [facility] [address] [place] [phone] Surgeon Colon and Rectal Surgery 08/26/21 documented as of this encounter
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
[2025-07-06 10:54] LABS: Albumin Level 3.9 g/dl (3.5-5.0); Chloride 99 mmol/L (98-107); Potassium 3.7 mmoL/L (3.5-5.1); Sodium 138 mmol/L (136-145)
[2025-07-06 10:57] LABS: Alanine Aminotransferase 41 U/L (12-78); Albumin/Globulin Ratio 1.3 (1.1-1.8); Alkaline Phosphatase 100 U/L (38-126); Anion Gap 12.7 mEq/L (5-15); Aspartate Amino Transferase 33 U/L (17-59); Bilirubin,Total 0.7 mg/dl (0.2-1.3); Blood Urea Nitrogen 19 mg/dl (9-20); Carbon Dioxide 30 mmol/L (22.0-30.0); Creatinine,Serum 1.00 mg/dl (0.66-1.25); Estimated Glomerular Filt Rate 75 ml/min (>60); GFR (African American) 90 ML/MIN (>60); Globulin 2.9 g/dL (1.3-3.2); Total Protein,Serum 6.8 g/dl (6.3-8.2)
[2025-07-06 10:58] LABS: Calcium 8.5 mg/dl (8.4-10.2); Glucose 177 mg/dl (74-100)
[2025-07-06 11:01] LABS: Hematocrit 38.5 % (42.0-52.0); Hemoglobin 12.9 g/dL (14.1-18.0); Immature Granulocytes % 3.1 %; Mean Corpuscular HGB Conc 33.5 g/dL (31.8-35.4); Mean Corpuscular Hemoglobin 29.9 pg (27.0-31.2); Mean Corpuscular Volume 89.3 fl (80-94); Nucleated Red Blood Cells % 0 %; Platelet Count 231 K/mm3 (142-424); Red Blood Count 4.31 M/mm3 (4.60-6.20); Red Cell Distribution Width-SD 41.7 fL; White Blood Count 6.8 K/mm3 (4.8-10.8)
[2025-07-06] MEDS: LEUPROLIDE 45 MG SUBCUT (11:27)
[2025-07-06 11:30] VITALS: BP 144/73; PULSE 72; RESP 18; TEMP 36.6; O2SAT 98
[2025-07-06 12:33] LABS: Prostate Specific Ag, Diagnost < 0.064 ng/ml (0.0-4.0)
== END 2025-07-06 23:59 | disposition home or self-care (01) ==
PROVIDERS: Visit Provider Internal Medicine Medical Oncology
DX: C61 Malignant neoplasm of prostate (principal)
CPT/HCPCS: 36415; 80053; 84153; 85025; 96402; J9217